=== PATIENT | male | born 1965 | race African-American/Black ===

== ENCOUNTER 2020-02-25 16:19 | Inpatient (IN) | payer OTHER ==
[2020-02-25 17:15] VITALS: BMI 33.6
--- NOTE | 2020-02-25 17:53 | HP ---
CIWA Score Nausea/Vomitin-Mild Nausea/No Vomiting Muscle Tremors: 2 Anxiety: 1-Mildly Anxious Agitation: 1-Slight > Activity Paroxysmal Sweats: 1-Minimal Palms Moist Orientation: 0-Oriented Tacttile Disturbances: 1-Very Mild Itch/Numbness Auditory Disturbances: 2-Mild Harshness/Frighten Visual Disturbances: 1-Very Mild Sensitivity Headache: 3-Moderate CIWA-Ar Total Score: 13 - Admission Criteria OASAS Guidelines: Admission for Medically Managed Detox: Requires at least one of the followin. CIWA greater than 12 2. Seizures within the past 24 hours 3. Delirium tremens within the past 24 hours 4. Hallucinations within the past 24 hours 5. Acute intervention needed for co occurring medical disorder 6. Acute intervention needed for co occurring psychiatric disorder 7. Severe withdrawal that cannot be handled at a lower level of care (continued vomiting, continued diarrhea, abnormal vital signs) requiring intravenous medication and/or fluids 8. Admission ROS [facility] Chief Complaint: alcohol detox Allergies/Adverse Reactions: Allergies Allergy/AdvReac Type Severity Reaction Status Date / Time No Known Allergies Allergy Verified 02/25/20 18:17 History of Present Illness: Patient is a 54 y/o male with a history of HTN and asthma who presents for alcohol and heroin use. Patient started drinking at age 10. Patient drinks 1/2 pint a day and reports he needs to drink every day. Patient denies ever having a seizure. Positive for blackouts and needing an eyeopener. patient has done rehab in the past but has not been able to be sober for an extended period of time. patient also uses heroin. Started using Heroin at 38. Uses 1 bundle (10 bags) a day. Overdosed once. Denies using IV. Patient last used today. Patient is on a suboxone program last took it on Monday. SGHX: none psych:bipolar, schizophrenic allx: none social: apartment, unemployed Patient meets criteria for alcohol detox with a CIWA of 13 and high risk of relapsing. Patients ISTOP shows he was prescribed suboxone recently. He used heroin today so we will start his suboxone tomorrow. *When asked if patient wants to hurt himself or others he stated " I don't know" when asked again he stated he just wanted the questions to stop and then loudly yelled he does not want to hurt himself or others. - Review of Systems Constitutional: Chills, Other (denies fever) EENT: reports: Blurred Vision, Double Vision, Other Respiratory: denies: Cough, Shortness of Breath, Wheezing Cardiac: denies: Chest Pain, Irregular Heart Rate GI: reports: Diarrhea, Nausea, Vomiting. denies: Constipated : denies: Burning Musculoskeletal: reports: Back Pain Neuro: reports: Headache. denies: Numbness, Tingling, Dizziness Endocrine: denies: Change in Weight Hematology: denies: Easy Bleeding Psychiatric: reports: Anxious, Depressed Patient History - Patient Medical History Hx Anemia: No Hx Asthma: Yes Hx Chronic Obstructive Pulmonary Disease (COPD): No Hx Cancer: No Hx Cardiac Disorders: No Hx Congestive Heart Failure: No Hx Hypertension: Yes Hx Hypercholesterolemia: No Hx Pacemaker: No HX Cerebrovascular Accident: No Hx Seizures: No Hx Dementia: No Hx Diabetes: No Hx Gastrointestinal Disorders: No Hx Liver Disease: No Hx Genitourinary Disorders: No Hx Sexually Transmitted Disorders: No Hx Renal Disease (ESRD): No Hx Thyroid Disease: No Hx Human Immunodeficiency Virus (HIV): No Hx Hepatitis C: No Hx Depression: Yes Hx Bipolar Disorder: Yes Hx Schizophrenia: Yes - Patient Surgical History Past Surgical History: No Hx Neurologic Surgery: No Hx Cataract Extraction: No Hx Cardiac Surgery: No Hx Lung Surgery: No Hx Breast Surgery: No Hx Breast Biopsy: No Hx Abdominal Surgery: No Hx Appendectomy: No Hx Cholecystectomy: No Hx Genitourinary Surgery: No Hx Section: No Hx Orthopedic Surgery: No Hx Hysterectomy: No Anesthesia Reaction: No - Smoking Cessation Smoking history: Current every day smoker Aproximately how many cigarettes per day: 60 Initiated information on smoking cessation: No - Substance & Tx. History Hx Alcohol Use: Yes Substance Use Type: Heroin - Substances abused Heroin Substance route: Inhalation Frequency: Daily Amount used: 10 bags Age of first use: 38 Date of last use: 02/25/20 Alcohol Substance route: Oral Frequency: Daily Amount used: half pint of vodka Age of first use: 8 Date of last use: 02/25/20 Admission Physical Exam [facility] - Vital Signs Vital Signs: Vital Signs - 24 hr 02/25/20 17:13 Temperature 97.2 F L Pulse Rate 69 Respiratory 19 Rate Blood Pressure 139/81 - Physical General Appearance: Yes: Obese, Other (very down attitude) HEENTM: Yes: Hearing grossly Normal, Normal ENT Inspection Respiratory: Yes: Within Normal Limits, Normal Breath Sounds, No Respiratory Distress Cardiology: Yes: Regular Rhythm, Regular Rate, S1, S2 Abdominal: Yes: Non Tender, Soft Genitourinary: Yes: Within Normal Limits Back: Yes: Within Normal Limits Musculoskeletal: Yes: full range of Motion Extremities: Yes: Non-Tender Neurological: Yes: Fully Oriented, Normal Response Integumentary: Yes: Dry, Warm - Diagnostic (1) Alcohol dependence with withdrawal Current Visit: Yes Status: Acute (2) Nicotine dependence Current Visit: Yes Status: Acute (3) Heroin addiction Current Visit: Yes Status: Acute (4) Hypertension Current Visit: Yes Status: Acute (5) Asthma Current Visit: Yes Status: Acute (6) Schizophrenia Current Visit: Yes Status: Acute Cleared for Admission S - Detox or Rehab [facility] Level of Care: Medically Managed Detox Regimen/Protocol: Librium Breathalyzer - Breathalyzer Breathalyzer: 0 Vital Signs - Vital Signs Vital signs refused: No Temperature: 97.2 F Pulse Rate: 69 Respiratory Rate: 19 Blood Pressure: 139/81 BP Location: Left Arm - Height Height: 6 ft 1 in - Weight Weight: 115.666 kg - BMI Body Mass Index (BMI): 33.6 Urine Drug Screen - Test Device Lot number: [id number] Expiration date: 09/18/19 - Control Is test valid?: Yes - Results Drug screen NEGATIVE: No Urine drug screen results: FEN-Fentanyl, MOP-Opiates Inpatient Rehab Admission - Rehab Decision to Admit Inpatient rehab admission?: No
[2020-02-25] MEDS ORDERED: BISMUTH SUBSALICYLATE 524 MG/30 ML UD PO PRN (18:04)
[2020-02-25] MEDS ORDERED: NICOTINE POLACRILEX 2 MG GUM BUC PRN (18:04)
[2020-02-25] MEDS ORDERED: MAGNESIUM HYDROX 2400MG/30ML ORAL SUSPENSION 30 ML CUP PO PRN (18:04)
[2020-02-25] MEDS ORDERED: ACETAMINOPHEN 325 MG TABLET (FP) PO PRN ×2 (18:04)
[2020-02-25] MEDS ORDERED: MAG HYDROX/AL HYDROX/SIMETH 30 ML UNIT-DOSE CUP PO PRN (18:04)
[2020-02-25] MEDS ORDERED: MAGNESIUM CITRATE 300 ML BOTTLE PO PRN (18:04)
[2020-02-25] MEDS ORDERED: MENTHOL/PHENOL 1 EACH UD MM PRN (18:04)
[2020-02-25] MEDS ORDERED: ONDANSETRON *ODT* 4 MG TABLET SL PRN (18:04)
[2020-02-25] MEDS: chlordiazePOXIDE HCL 25 MG CAPSULE PO PRN (19:42)
[2020-02-25] MEDS: PRENATAL VITAMINS W/ FOLIC ACID TABLET (FP) PO SCH (19:42)
[2020-02-25] MEDS: ALBUTEROL SO4 HFA INHALER IH SCH (20:47)
[2020-02-25] MEDS: hydrOXYzine PAMOATE 25 MG CAPSULE (FP) PO SCH (22:58)
[2020-02-25] MEDS: MELATONIN 5 MG TABLETS PO SCH (22:58)
[2020-02-25] MEDS: chlordiazePOXIDE HCL 25 MG CAPSULE PO SCH (22:58)
[2020-02-25] MEDS: THIAMINE HCL 100 MG TABLET (FP) PO SCH (22:58)
[2020-02-26] MEDS: hydrOXYzine PAMOATE 25 MG CAPSULE (FP) PO SCH ×5 (06:42→22:56)
[2020-02-26] MEDS: chlordiazePOXIDE HCL 25 MG CAPSULE PO SCH ×3 (06:42→18:58)
[2020-02-26] MEDS: ALBUTEROL SO4 HFA INHALER IH SCH ×4 (08:28→22:00)
--- NOTE | 2020-02-26 09:02 | EKG ---
Test Reason : Blood Pressure : / mmHG Vent. Rate : 070 BPM Atrial Rate : 070 BPM P-R Int : 184 ms QRS Dur : 084 ms QT Int : 374 ms P-R-T Axes : 071 000 -18 degrees QTc Int : 403 ms NORMAL SINUS RHYTHM POSSIBLE INFERIOR INFARCT , AGE UNDETERMINED ABNORMAL ECG NO PREVIOUS ECGS AVAILABLE Confirmed by MD LARRY, FAYE ([id number]) on 02/26/2020 9:02:32 AM Referred By: Confirmed By:FAYE JUAREZ MD
--- NOTE | 2020-02-26 09:03 | PN ---
Teaching Attending Note Name of Resident: Erica Bowman ATTENDING PHYSICIAN STATEMENT I saw and evaluated the patient. I reviewed the resident's note and discussed the case with the resident. I agree with the resident's findings and plan as documented. SUBJECTIVE: OBJECTIVE: ASSESSMENT AND PLAN: Agree with resident's findings and plan for detox.
--- NOTE | 2020-02-26 09:52 | PN ---
S CIWA - CIWA Score Nausea/Vomitin Muscle Tremors: 3 Anxiety: 3 Agitation: 3 Paroxysmal Sweats: No Perspiration Orientation: 0-Oriented Tacttile Disturbances: 1-Very Mild Itch/Numbness Auditory Disturbances: 0-None Visual Disturbances: 0-None Headache: 2-Mild CIWA-Ar Total Score: 14 S Progress Note (SOAP) Subjective: alert,irritable,anxious,interrupted sleep,aching pain in the body Objective: 02/26/20 11:52 Vital Signs Temperature 97.1 F L 02/26/20 08:50 Pulse Rate 70 02/26/20 08:50 Respiratory Rate 20 02/26/20 08:50 Blood Pressure 125/65 02/26/20 08:50 O2 Sat by Pulse Oximetry (%) 100 02/26/20 08:50 Laboratory Last Values WBC 4.2 K/mm3 (4.0-10.0) 02/26/20 07:45 RBC 3.92 M/mm3 (4.00-5.60) L 02/26/20 07:45 Hgb 12.2 GM/dL (11.7-16.9) 02/26/20 07:45 Hct 35.9 % (35.4-49) 02/26/20 07:45 MCV 91.5 fl (80-96) 02/26/20 07:45 MCH 31.2 pg (25.7-33.7) 02/26/20 07:45 MCHC 34.1 g/dl (32.0-35.9) 02/26/20 07:45 RDW 15.5 % (11.9-15.9) 02/26/20 07:45 Plt Count 209 K/MM3 (134-434) 02/26/20 07:45 MPV 9.7 fl (7.5-11.1) 02/26/20 07:45 Sodium 142 mmol/L (136-145) 02/26/20 07:45 Potassium 4.0 mmol/L (3.5-5.1) 02/26/20 07:45 Chloride 108 mmol/L (98-107) H 02/26/20 07:45 Carbon Dioxide 28 mmol/L (21-32) 02/26/20 07:45 Anion Gap 6 MMOL/L (8-16) L 02/26/20 07:45 BUN 17.1 mg/dL (7-18) 02/26/20 07:45 Creatinine 0.9 mg/dL (0.55-1.3) 02/26/20 07:45 Est GFR (CKD-EPI)AfAm 110.27 02/26/20 07:45 Est GFR (CKD-EPI)NonAf 95.14 02/26/20 07:45 Random Glucose 137 mg/dL (74-106) H 02/26/20 07:45 Calcium 8.4 mg/dL (8.5-10.1) L 02/26/20 07:45 Total Bilirubin 0.3 mg/dL (0.2-1) 02/26/20 07:45 AST 24 U/L (15-37) 02/26/20 07:45 ALT 32 U/L (13-61) 02/26/20 07:45 Alkaline Phosphatase 57 U/L (45-117) 02/26/20 07:45 Total Protein 6.4 g/dl (6.4-8.2) 02/26/20 07:45 Albumin 2.9 g/dl (3.4-5.0) L 02/26/20 07:45 Syphilis Serology Non-reactive (NONREACTIVE) 02/26/20 07:45 Assessment: 02/26/20 11:53 withdrawal symptom Plan: continue detox librium regimen,i stop showed patient is on suboxone 8mgs/2mgs f ilm tid filled on 01/29/20 for 90 film for 30 days, requested 8mg/2mg sl 2 films at 0600 and 1 film at 1400 from tomorrow
[2020-02-26] MEDS ORDERED: BUPRENORPHINE/NALOXONE 8 MG/2 MG FILM PACKET SL SCH (10:00)
[2020-02-26] MEDS: NICOTINE 21 MG/24 HOURS TOPICAL PATCH TD SCH (10:18)
[2020-02-26] MEDS: PRENATAL VITAMINS W/ FOLIC ACID TABLET (FP) PO SCH (10:18)
[2020-02-26 10:27] LABS: HEMATOCRIT 35.9 % (35.4-49); HEMOGLOBIN 12.2 GM/dL (11.7-16.9); MCH 31.2 pg (25.7-33.7); MCHC 34.1 g/dl (32.0-35.9); MEAN CELL VOLUME 91.5 fl (80-96); MEAN PLT VOLUME 9.7 fl (7.5-11.1); PLATELET COUNT 209 K/MM3 (134-434); RBC 3.92 M/mm3 (4.00-5.60); RDW 15.5 % (11.9-15.9); WHITE BLOOD COUNT 4.2 K/mm3 (4.0-10.0)
[2020-02-26 10:48] LABS: ALBUMIN 2.9 g/dl (3.4-5.0); BILIRUBIN,TOTAL 0.3 mg/dL (0.2-1); BLOOD UREA NITROGEN 17.1 mg/dL (7-18); CALCIUM 8.4 mg/dL (8.5-10.1); CREATININE 0.9 mg/dL (0.55-1.3); TOT PROT 6.4 g/dl (6.4-8.2)
[2020-02-26] MEDS ORDERED: BUPRENORPHINE/NALOXONE 8 MG/2 MG FILM PACKET SL ONE (11:45)
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
[2020-02-26] MEDS: BUPRENORPHINE/NALOXONE 8 MG/2 MG FILM PACKET SL SCH (15:02)
[2020-02-26] MEDS: IBUPROFEN 400 MG TABLET (FP) PO PRN (19:44)
[2020-02-26] MEDS ORDERED: SUVOREXANT 10 MG TABLET PO PRN (22:00)
[2020-02-26] MEDS: THIAMINE HCL 100 MG TABLET (FP) PO SCH (22:56)
[2020-02-26] MEDS: MELATONIN 5 MG TABLETS PO SCH (22:56)
[2020-02-27] MEDS: chlordiazePOXIDE HCL 25 MG CAPSULE PO SCH ×5 (00:09→22:16)
[2020-02-27] MEDS: MIRTAZAPINE 15 MG TABLET (FP) PO SCH ×2 (00:09→22:16)
[2020-02-27] MEDS: HALOPERIDOL 5 MG TABLET PO SCH ×2 (00:09→22:16)
[2020-02-27] MEDS: chlordiazePOXIDE HCL 25 MG CAPSULE PO PRN ×2 (02:47→19:09)
[2020-02-27] MEDS: hydrOXYzine PAMOATE 25 MG CAPSULE (FP) PO SCH ×2 (06:34→11:06)
[2020-02-27] MEDS: BUPRENORPHINE/NALOXONE 8 MG/2 MG FILM PACKET SL SCH ×2 (06:34→14:03)
[2020-02-27] MEDS: ALBUTEROL SO4 HFA INHALER IH SCH ×4 (07:11→22:17)
[2020-02-27] MEDS ORDERED: hydrOXYzine PAMOATE 25 MG CAPSULE (FP) PO PRN (10:20)
[2020-02-27] MEDS ORDERED: cloNIDine HCL 0.1 MG TABLET PO ONE (10:21)
--- NOTE | 2020-02-27 10:24 | PN ---
S CIWA - CIWA Score Nausea/Vomitin-Mild Nausea/No Vomiting Muscle Tremors: 3 Anxiety: 2 Agitation: 3 Paroxysmal Sweats: 3 Orientation: 0-Oriented Tacttile Disturbances: 0-None Auditory Disturbances: 0-None Visual Disturbances: 0-None Headache: 0-None Present CIWA-Ar Total Score: 12 S Progress Note (SOAP) Subjective: sweats body aches restless interrupted sleep Objective: 02/27/20 10:22 Vital Signs Temperature 97.3 F L 02/27/20 08:15 Pulse Rate 64 02/27/20 08:15 Respiratory Rate 18 02/27/20 08:15 Blood Pressure 185/96 H 02/27/20 08:15 O2 Sat by Pulse Oximetry (%) 98 02/27/20 05:11 Laboratory Tests 02/25/20 02/26/20 02/26/20 18:00 07:45 07:45 WBC 4.2 RBC 3.92 L Hgb 12.2 Hct 35.9 MCV 91.5 MCH 31.2 MCHC 34.1 RDW 15.5 Plt Count 209 MPV 9.7 Sodium Potassium Chloride Carbon Dioxide Anion Gap BUN Creatinine Est GFR (CKD-EPI)AfAm Est GFR (CKD-EPI)NonAf Random Glucose Calcium Total Bilirubin AST ALT Alkaline Phosphatase Total Protein Albumin Syphilis Serology Non-reactive COVID-19 (KELLE) Not detected 02/26/20 07:45 WBC RBC Hgb Hct MCV MCH MCHC RDW Plt Count MPV Sodium 142 Potassium 4.0 Chloride 108 H Carbon Dioxide 28 Anion Gap 6 L BUN 17.1 Creatinine 0.9 Est GFR (CKD-EPI)AfAm 110.27 Est GFR (CKD-EPI)NonAf 95.14 Random Glucose 137 H Calcium 8.4 L Total Bilirubin 0.3 AST 24 ALT 32 Alkaline Phosphatase 57 Total Protein 6.4 Albumin 2.9 L Syphilis Serology COVID-19 (KELLE) labs noted HTN noted 185/96; repeat BP 142/76 HR 78 clonidine 0.1mg x one aaox3 ambulating no acute distress Assessment: 02/27/20 10:24 withdrawals Plan: continue detox clonidine 0.1mg x one
[2020-02-27] MEDS: PRENATAL VITAMINS W/ FOLIC ACID TABLET (FP) PO SCH (10:53)
[2020-02-27] MEDS: NICOTINE 21 MG/24 HOURS TOPICAL PATCH TD SCH (10:53)
[2020-02-27] MEDS: IBUPROFEN 400 MG TABLET (FP) PO PRN (14:33)
[2020-02-27] MEDS ORDERED: MASKS NR ONE (16:55)
[2020-02-27] MEDS: THIAMINE HCL 100 MG TABLET (FP) PO SCH (22:16)
[2020-02-27] MEDS: MELATONIN 5 MG TABLETS PO SCH (22:17)
[2020-02-28] MEDS ORDERED: chlordiazePOXIDE HCL 10 MG CAPSULE PO PRN
[2020-02-28] MEDS: chlordiazePOXIDE HCL 10 MG CAPSULE PO SCH ×4 (05:23→22:16)
[2020-02-28] MEDS: BUPRENORPHINE/NALOXONE 8 MG/2 MG FILM PACKET SL SCH ×2 (05:24→14:17)
[2020-02-28] MEDS: ALBUTEROL SO4 HFA INHALER IH SCH ×4 (07:02→22:15)
--- NOTE | 2020-02-28 10:05 | PN ---
S CIWA - CIWA Score Nausea/Vomitin-Mild Nausea/No Vomiting Muscle Tremors: 2 Anxiety: 2 Agitation: 2 Paroxysmal Sweats: No Perspiration Orientation: 0-Oriented Tacttile Disturbances: 1-Very Mild Itch/Numbness Auditory Disturbances: 0-None Visual Disturbances: 0-None Headache: 1-Very Mild CIWA-Ar Total Score: 9 BHS Progress Note (SOAP) Subjective: alert,irritable,anxious,interrupted sleep,aching pain Objective: 02/28/20 16:08 Vital Signs Temperature 97.6 F 02/28/20 13:10 Pulse Rate 74 02/28/20 13:10 Respiratory Rate 17 02/28/20 13:10 Blood Pressure 150/87 02/28/20 13:10 O2 Sat by Pulse Oximetry (%) 99 02/28/20 13:10 Assessment: 02/28/20 16:09 withdrawal symptom Plan: continue detox librium regimen,continue suboxone ,close monitoring
[2020-02-28] MEDS: PRENATAL VITAMINS W/ FOLIC ACID TABLET (FP) PO SCH (10:51)
[2020-02-28] MEDS: NICOTINE 21 MG/24 HOURS TOPICAL PATCH TD SCH (10:51)
[2020-02-28] MEDS: IBUPROFEN 400 MG TABLET (FP) PO PRN (13:10)
[2020-02-28] MEDS: METHOCARBAMOL 500 MG TABLET PO PRN (13:10)
[2020-02-28] MEDS: MELATONIN 5 MG TABLETS PO SCH (22:16)
[2020-02-28] MEDS: MIRTAZAPINE 15 MG TABLET (FP) PO SCH (22:16)
[2020-02-28] MEDS: HALOPERIDOL 5 MG TABLET PO SCH (22:16)
[2020-02-28] MEDS: THIAMINE HCL 100 MG TABLET (FP) PO SCH (22:16)
[2020-02-29] MEDS: IBUPROFEN 400 MG TABLET (FP) PO PRN ×2 (00:48→13:50)
[2020-02-29] MEDS: BUPRENORPHINE/NALOXONE 8 MG/2 MG FILM PACKET SL SCH ×2 (06:15→13:50)
[2020-02-29] MEDS: chlordiazePOXIDE HCL 10 MG CAPSULE PO SCH ×2 (06:18→17:29)
[2020-02-29] MEDS: ALBUTEROL SO4 HFA INHALER IH SCH ×4 (07:12→22:28)
[2020-02-29] MEDS: NICOTINE 21 MG/24 HOURS TOPICAL PATCH TD SCH (10:26)
[2020-02-29] MEDS: PRENATAL VITAMINS W/ FOLIC ACID TABLET (FP) PO SCH (10:26)
[2020-02-29] MEDS: METHOCARBAMOL 500 MG TABLET PO PRN ×2 (13:50→22:30)
--- NOTE | 2020-02-29 13:58 | PN ---
[facility] CIWA - CIWA Score Nausea/Vomitin-No Nausea/No Vomiting Muscle Tremors: 1-None Visible, but [place] Anxiety: 2 Agitation: 1-Slight > Activity Paroxysmal Sweats: 1-Minimal Palms Moist Orientation: 0-Oriented Tacttile Disturbances: 0-None Auditory Disturbances: 0-None Visual Disturbances: 0-None Headache: 0-None Present CIWA-Ar Total Score: 5 BHS Progress Note (SOAP) Subjective: Complaints of mild anxiety, sweats and agitation. Objective: 02/29/20 13:56 Vital Signs 02/29/20 02/29/20 12:25 Temperature 98.0 F 98.4 F Pulse Rate 71 86 Respiratory 18 18 Rate Blood Pressure 147/91 145/99 O2 Sat by Pulse 96 98 Oximetry (%) Laboratory Last Values WBC 4.2 K/mm3 (4.0-10.0) 02/26/20 07:45 RBC 3.92 M/mm3 (4.00-5.60) L 02/26/20 07:45 Hgb 12.2 GM/dL (11.7-16.9) 02/26/20 07:45 Hct 35.9 % (35.4-49) 02/26/20 07:45 MCV 91.5 fl (80-96) 02/26/20 07:45 MCH 31.2 pg (25.7-33.7) 02/26/20 07:45 MCHC 34.1 g/dl (32.0-35.9) 02/26/20 07:45 RDW 15.5 % (11.9-15.9) 02/26/20 07:45 Plt Count 209 K/MM3 (134-434) 02/26/20 07:45 MPV 9.7 fl (7.5-11.1) 02/26/20 07:45 Sodium 142 mmol/L (136-145) 02/26/20 07:45 Potassium 4.0 mmol/L (3.5-5.1) 02/26/20 07:45 Chloride 108 mmol/L (98-107) H 02/26/20 07:45 Carbon Dioxide 28 mmol/L (21-32) 02/26/20 07:45 Anion Gap 6 MMOL/L (8-16) L 02/26/20 07:45 BUN 17.1 mg/dL (7-18) 02/26/20 07:45 Creatinine 0.9 mg/dL (0.55-1.3) 02/26/20 07:45 Est GFR (CKD-EPI)AfAm 110.27 02/26/20 07:45 Est GFR (CKD-EPI)NonAf 95.14 02/26/20 07:45 Random Glucose 137 mg/dL (74-106) H 02/26/20 07:45 Calcium 8.4 mg/dL (8.5-10.1) L 02/26/20 07:45 Total Bilirubin 0.3 mg/dL (0.2-1) 02/26/20 07:45 AST 24 U/L (15-37) 02/26/20 07:45 ALT 32 U/L (13-61) 02/26/20 07:45 Alkaline Phosphatase 57 U/L (45-117) 02/26/20 07:45 Total Protein 6.4 g/dl (6.4-8.2) 02/26/20 07:45 Albumin 2.9 g/dl (3.4-5.0) L 02/26/20 07:45 Syphilis Serology Non-reactive (NONREACTIVE) 02/26/20 07:45 COVID-19 (KELLE) Not detected (Not Detected) 02/25/20 18:00 Labs noted. Assessment: 02/29/20 13:57 Alert and oriented x 3, in no acute respiratory distress. Full ROM, ambulating in unit without assistance. Skin warm to touch without any lesions. Mild withdrawal symptoms. Plan: Continue detox protocol. D/C in AM.
--- NOTE | 2020-02-29 17:39 | PN ---
S Progress Note Note: Patient states not receiving B/P meds and his feet are swollen. Wants to see psych for seroquel. No thoughts of harming self. Vital Signs - 24 hr 02/28/20 02/29/20 02/29/20 20:19 05:08 09:20 Temperature 97.8 F 97.7 F 98.0 F Pulse Rate 86 71 71 Respiratory 18 20 18 Rate Blood Pressure 146/86 129/69 147/91 O2 Sat by Pulse 98 98 96 Oximetry (%) 02/29/20 12:25 Temperature 98.4 F Pulse Rate 86 Respiratory 18 Rate Blood Pressure 145/99 O2 Sat by Pulse 98 Oximetry (%) Plan: Medication list reviewed and started on Cardura. Psych consult submitted.
[2020-02-29] MEDS: DOXAZOSIN MESYLATE 2 MG TABLET PO SCH (20:12)
[2020-02-29] MEDS: MELATONIN 5 MG TABLETS PO SCH (22:28)
[2020-02-29] MEDS: HALOPERIDOL 5 MG TABLET PO SCH (22:28)
[2020-02-29] MEDS: MIRTAZAPINE 15 MG TABLET (FP) PO SCH (22:28)
[2020-02-29] MEDS: THIAMINE HCL 100 MG TABLET (FP) PO SCH (22:29)
[2020-03-01] MEDS ORDERED: chlordiazePOXIDE HCL 10 MG CAPSULE PO ONE (05:00)
[2020-03-01] MEDS: BUPRENORPHINE/NALOXONE 8 MG/2 MG FILM PACKET SL SCH ×2 (06:06→14:07)
[2020-03-01] MEDS: METHOCARBAMOL 500 MG TABLET PO PRN (06:08)
[2020-03-01 10:26] VITALS: TEMP 97.8
[2020-03-01] MEDS: NICOTINE 21 MG/24 HOURS TOPICAL PATCH TD SCH (10:39)
[2020-03-01] MEDS: PRENATAL VITAMINS W/ FOLIC ACID TABLET (FP) PO SCH (10:39)
[2020-03-01] MEDS: DOXAZOSIN MESYLATE 2 MG TABLET PO SCH (10:39)
--- NOTE | 2020-03-01 12:22 | DS ---
[facility] Detox Discharge Summary Admission Date: 02/25/20 Discharge Date: 03/01/20 - History Present History: Alcohol Dependence, Opioid Dependence, MMTP Additional Comments: Pt completed detox successfully and accepted admission to [facility] inpatient rehab. Pt instructed to follow up with his PCP within 1 week post discharge from rehab. Pertinent Past History: Asthma HTN Nicotine dependence - Physical Exam Results Vital Signs: Vital Signs Temperature 97.8 F 03/01/20 09:25 Pulse Rate 74 03/01/20 09:25 Respiratory Rate 20 03/01/20 09:25 Blood Pressure 156/77 03/01/20 09:25 O2 Sat by Pulse Oximetry (%) 97 03/01/20 09:25 Pertinent Admission Physical Exam Findings: Withdrawal sxs Laboratory Tests 02/25/20 02/26/20 02/26/20 18:00 07:45 07:45 WBC 4.2 RBC 3.92 L Hgb 12.2 Hct 35.9 MCV 91.5 MCH 31.2 MCHC 34.1 RDW 15.5 Plt Count 209 MPV 9.7 Sodium Potassium Chloride Carbon Dioxide Anion Gap BUN Creatinine Est GFR (CKD-EPI)AfAm Est GFR (CKD-EPI)NonAf Random Glucose Calcium Total Bilirubin AST ALT Alkaline Phosphatase Total Protein Albumin Syphilis Serology Non-reactive COVID-19 (KELLE) Not detected 02/26/20 07:45 WBC RBC Hgb Hct MCV MCH MCHC RDW Plt Count MPV Sodium 142 Potassium 4.0 Chloride 108 H Carbon Dioxide 28 Anion Gap 6 L BUN 17.1 Creatinine 0.9 Est GFR (CKD-EPI)AfAm 110.27 Est GFR (CKD-EPI)NonAf 95.14 Random Glucose 137 H Calcium 8.4 L Total Bilirubin 0.3 AST 24 ALT 32 Alkaline Phosphatase 57 Total Protein 6.4 Albumin 2.9 L Syphilis Serology COVID-19 (KELLE) Labs reviewed: serum glucose 137 (high), denies DM: repeat fasting glucose, send A1c; albumin 2.9 (low): encourage diet - Treatment Hospital Course: Detox Protocol Followed, Detoxed Safely, Responded well, Discharged Condition Good, Rehab Referral Accepted - Medication Discharge Medications: Ambulatory Orders Albuterol Sulfate [Albuterol Sulfate Hfa] 2 puff IH QID 02/25/20 Buprenorphine HCl/Naloxone HCl [Suboxone 8 mg-2 mg Sl Tablets] 1 film PO TID 02/25/20 Bupropion HCl [Wellbutrin Sr] 150 mg PO DAILY 02/25/20 Doxazosin Mesylate [Cardura -] 2 mg PO DAILY 02/25/20 Haloperidol [Haldol -] 5 mg PO HS 02/25/20 Mirtazapine [Remeron -] 15 mg PO HS 02/25/20 Zolpidem Tartrate [Ambien] 10 mg PO HS 02/25/20 - Diagnosis (1) Hyperglycemia Current Visit: Yes Status: Acute (2) Hypoalbuminemia Current Visit: Yes Status: Acute (3) Alcohol dependence with withdrawal Current Visit: Yes Status: Acute (4) Uncomplicated opioid dependence Current Visit: Yes Status: Acute (5) Asthma Current Visit: Yes Status: Chronic (6) Hypertension Current Visit: Yes Status: Chronic (7) Nicotine dependence Current Visit: Yes Status: Chronic (8) Schizophrenia Current Visit: Yes Status: Chronic - AMA Did Patient Leave Against Medical Advice: No (Patient accepted admission to [facility] inpatient rehab)
[2020-03-01] MEDS: IBUPROFEN 400 MG TABLET (FP) PO PRN (14:05)
[2020-03-01 14:08] VITALS: BP 157/70; PULSE 91
== END 2020-03-01 14:35 | disposition other institution (70) | DRG 773 ==
LOC: YASAS 16:19 → Y6N 18:36
PROVIDERS: ADMIT Allergy & Immunology; ATTEND Allergy & Immunology
PROC: HZ2ZZZZ Detoxification Services for Substance Abuse Treatment (ICD-10-PCS; principal; 2020-02-25)
DX: F10.230 Alcohol dependence with withdrawal, uncomplicated (principal); F11.20 Opioid dependence, uncomplicated; F17.210 Nicotine dependence, cigarettes, uncomplicated; F19.282 Other psychoactive substance dependence with psychoactive substance-induced sleep disorder; F19.24 Other psychoactive substance dependence with psychoactive substance-induced mood disorder; F31.9 Bipolar disorder, unspecified; F20.9 Schizophrenia, unspecified; E88.09 Other disorders of plasma-protein metabolism, not elsewhere classified; I10 Essential (primary) hypertension; J45.909 Unspecified asthma, uncomplicated; R73.9 Hyperglycemia, unspecified; Z62.810 Personal history of physical and sexual abuse in childhood; Z56.0 Unemployment, unspecified
CPT/HCPCS: 36415; 80053; 85027; 86780; 93005; 93010; J0735; U0003

== ENCOUNTER 2020-03-01 14:35 | Inpatient (IN) | payer OTHER ==
--- NOTE | 2020-03-01 15:08 | HP ---
[facility] Re[facility] Assess/Revision - Admission History Admitted to Rehab from: [facility] Date of Admission to Rehab: 03/01/20 - Vital signs Vital Signs: Vital Signs Period Temp Pulse Resp BP Sys/Boudreaux Pulse Ox Last 24 Hr 93 18 152/95 - Findings Detox History & Physical reviewed: Yes Concur with findings: Yes Inpatient Rehab Admission - Rehab Decision to Admit Inpatient rehab admission?: Yes - Initial Determination Are CD services needed?: No Free of communicable disease: Yes Not in need of hospitalization: No - Rehab Admission Criteria Previous failed treatment: Yes Poor recovery environment: Yes Comorbidities: Yes Lacks judgement: Yes Patient is meeting Inpatient Rehab admission criteria:: Yes
[2020-03-01] MEDS ORDERED: P-EPHED 60MG/TRIPROLIDI 2.5MG TABLET PO PRN (15:09)
[2020-03-01] MEDS ORDERED: MENTHOL/PHENOL 1 EACH UD MM PRN (15:09)
[2020-03-01] MEDS ORDERED: MAGNESIUM CITRATE 300 ML BOTTLE PO PRN (15:09)
[2020-03-01] MEDS ORDERED: guaiFENesin 200 MG/10 ML 10 ML UNIT-DOSE CUPS PO PRN (15:09)
[2020-03-01] MEDS ORDERED: ACETAMINOPHEN 325 MG TABLET (FP) PO PRN (15:09)
[2020-03-01] MEDS ORDERED: LOPERAMIDE HCL 2 MG CAPSULE PO PRN (15:09)
[2020-03-01] MEDS ORDERED: MAGNESIUM HYDROX 2400MG/30ML ORAL SUSPENSION 30 ML CUP PO PRN (15:09)
--- NOTE | 2020-03-01 16:11 | PN ---
[facility] Progress Note Note: Patient is referred for a witnessed fall. As per report, patient was coming out of the bathroom when he slipped and fell on his buttocks without hitting his head. He is examined in his room, in no apparent distress. He denies new pain, he has chronic low back pain. PE Vital Signs Temperature 98.5 F 03/01/20 16:02 Pulse Rate 89 03/01/20 16:02 Respiratory Rate 18 03/01/20 16:02 Blood Pressure 151/85 03/01/20 16:02 O2 Sat by Pulse Oximetry (%) HEENT: Unremarkable Chest:Lungs clear Extremities: No swelling, no deformities, MCCOY x 4 at baseline Neuro: A&Ox3, no focal deficits A/P Witnessed fall-Fall protocol # 2 activated Cane for ambulation Monitoring ongoing
[2020-03-01] MEDS: THIAMINE HCL 100 MG TABLET (FP) PO SCH (21:07)
[2020-03-01] MEDS: MELATONIN 5 MG TABLETS PO SCH (21:07)
[2020-03-01] MEDS: HALOPERIDOL 5 MG TABLET PO SCH (21:07)
[2020-03-01] MEDS: SUVOREXANT 10 MG TABLET PO PRN (21:08)
[2020-03-01] MEDS: MIRTAZAPINE 15 MG TABLET (FP) PO SCH (21:08)
[2020-03-01] MEDS: IBUPROFEN 400 MG TABLET (FP) PO PRN (21:09)
[2020-03-02] MEDS: BUPRENORPHINE/NALOXONE 8 MG/2 MG FILM PACKET SL SCH ×2 (06:24→14:55)
[2020-03-02] MEDS ORDERED: PT OWN MED DRAWER 7, Y5N ONE (08:52)
[2020-03-02] MEDS: PRENATAL VITAMINS W/ FOLIC ACID TABLET (FP) PO SCH (10:50)
[2020-03-02] MEDS: NICOTINE 21 MG/24 HOURS TOPICAL PATCH TD SCH (10:50)
[2020-03-02] MEDS: DOXAZOSIN MESYLATE 2 MG TABLET PO SCH (10:50)
[2020-03-02] MEDS: ALBUTEROL SO4 HFA INHALER IH PRN (11:10)
[2020-03-02] MEDS: HALOPERIDOL 5 MG TABLET PO SCH (21:49)
[2020-03-02] MEDS: MELATONIN 5 MG TABLETS PO SCH (21:49)
[2020-03-02] MEDS: THIAMINE HCL 100 MG TABLET (FP) PO SCH (21:49)
[2020-03-02] MEDS: MIRTAZAPINE 15 MG TABLET (FP) PO SCH (21:49)
[2020-03-02] MEDS: SUVOREXANT 10 MG TABLET PO PRN (21:50)
[2020-03-03] MEDS: BUPRENORPHINE/NALOXONE 8 MG/2 MG FILM PACKET SL SCH ×2 (06:12→14:31)
[2020-03-03] MEDS: DOXAZOSIN MESYLATE 2 MG TABLET PO SCH (10:24)
[2020-03-03] MEDS: ALBUTEROL SO4 HFA INHALER IH PRN (10:59)
[2020-03-03] MEDS: NICOTINE 21 MG/24 HOURS TOPICAL PATCH TD SCH (10:59)
[2020-03-03] MEDS: PRENATAL VITAMINS W/ FOLIC ACID TABLET (FP) PO SCH (10:59)
[2020-03-03] MEDS: METHOCARBAMOL 500 MG TABLET PO SCH ×3 (14:29→21:05)
[2020-03-03] MEDS ORDERED: PT OWN MED DRAWER 7, Y5N ONE (18:36)
[2020-03-03] MEDS: MIRTAZAPINE 15 MG TABLET (FP) PO SCH (21:05)
[2020-03-03] MEDS: THIAMINE HCL 100 MG TABLET (FP) PO SCH (21:05)
[2020-03-03] MEDS: MELATONIN 5 MG TABLETS PO SCH (21:05)
[2020-03-03] MEDS: SUVOREXANT 10 MG TABLET PO PRN (21:05)
[2020-03-03] MEDS: HALOPERIDOL 5 MG TABLET PO SCH (21:05)
[2020-03-04] MEDS: BUPRENORPHINE/NALOXONE 8 MG/2 MG FILM PACKET SL SCH ×2 (05:51→14:34)
[2020-03-04] MEDS: IBUPROFEN 400 MG TABLET (FP) PO PRN ×2 (05:52→17:45)
[2020-03-04] MEDS: DOXAZOSIN MESYLATE 2 MG TABLET PO SCH (09:16)
[2020-03-04] MEDS: PRENATAL VITAMINS W/ FOLIC ACID TABLET (FP) PO SCH (09:16)
[2020-03-04] MEDS: METHOCARBAMOL 500 MG TABLET PO SCH ×4 (09:16→21:47)
[2020-03-04] MEDS: ALBUTEROL SO4 HFA INHALER IH PRN (09:17)
[2020-03-04] MEDS: NICOTINE 21 MG/24 HOURS TOPICAL PATCH TD SCH (09:17)
--- NOTE | 2020-03-04 09:40 | PN ---
S Progress Note Note: Patient had a fall on and is now c/o pain. general: no apparent distress MSK: full weight bearing, steady gait Neuro: Muscle strength equal LBP Will order x-ray, tylenol increased
[2020-03-04] MEDS: HALOPERIDOL 5 MG TABLET PO SCH (21:47)
[2020-03-04] MEDS: THIAMINE HCL 100 MG TABLET (FP) PO SCH (21:47)
[2020-03-04] MEDS: MELATONIN 5 MG TABLETS PO SCH (21:47)
[2020-03-04] MEDS: MIRTAZAPINE 15 MG TABLET (FP) PO SCH (21:47)
[2020-03-05] MEDS: IBUPROFEN 400 MG TABLET (FP) PO PRN ×2 (03:14→10:24)
[2020-03-05] MEDS: BUPRENORPHINE/NALOXONE 8 MG/2 MG FILM PACKET SL SCH ×2 (06:22→14:32)
--- NOTE | 2020-03-05 10:12 | PN ---
[facility] Progress Note Note: Sacrum x-ray done. no fracture or injury note.
[2020-03-05] MEDS: METHOCARBAMOL 500 MG TABLET PO SCH ×4 (10:24→21:04)
[2020-03-05] MEDS: PRENATAL VITAMINS W/ FOLIC ACID TABLET (FP) PO SCH (10:24)
[2020-03-05] MEDS: ALBUTEROL SO4 HFA INHALER IH PRN (10:25)
[2020-03-05] MEDS: NICOTINE 21 MG/24 HOURS TOPICAL PATCH TD SCH (10:25)
[2020-03-05] MEDS: DOXAZOSIN MESYLATE 2 MG TABLET PO SCH (10:25)
--- NOTE | 2020-03-05 13:27 | PN ---
[facility] Progress Note (SOAP) Subjective: Patient c/o lower back pain, X-ray indicates no injury. Also reports ankle swelling. States that this has been happening for about 2 weeks, and has happened in the past. Reports that his father had ankle swelling, PMHx of BPH and HTN, on cardura. Objective: General: no apparent distress Resp: unlabored MSK: full weight bearing, gait steady with cane BACK: spine with normal curvature, tenderness in sacral area. Extremities: 2+ pitting edema bilaterally, skin on legs shiny and tight. Neuro: no cognitive deficits, CN 2-12 intact, Muscle strength equal 03/05/20 13:2 Vital Signs Period Temp Pulse Resp BP Sys/Boudreaux Pulse Ox Last 24 Hr 97.7 F-98.1 F 72-76 16-18 138-152/72-78 96-97 03/05/20 13:25 03/05/20 13:27 03/05/20 13:27 Assessment: LE edema LBP 03/05/20 13:25 03/05/20 13:28 Plan: EDEMA: Cardura increased to 4mg daily Irineo stockings ordered Advised patient to elevate legs when sitting and resting Increase walking LBP: Motrin increased to 600mg every 4 hours Lidoderm patch ordered [place] at night ordered.
[2020-03-05] MEDS ORDERED: DOXAZOSIN MESYLATE 4 MG TABLET PO SCH (14:00)
[2020-03-05] MEDS: LIDOCAINE 5% TOPICAL PATCH TP SCH (14:30)
[2020-03-05] MEDS ORDERED: DOXAZOSIN MESYLATE 1 MG TABLET PO ONE (14:30)
[2020-03-05] MEDS: MELATONIN 5 MG TABLETS PO SCH (21:04)
[2020-03-05] MEDS: MIRTAZAPINE 15 MG TABLET (FP) PO SCH (21:04)
[2020-03-05] MEDS: THIAMINE HCL 100 MG TABLET (FP) PO SCH (21:04)
[2020-03-05] MEDS: LIDOCAINE PATCH REMOVAL MC SCH (21:04)
[2020-03-05] MEDS: HALOPERIDOL 5 MG TABLET PO SCH (21:05)
[2020-03-05] MEDS: METHYL SALICYLATE/MENTHOL OINT 30 GM TUBE TP SCH (21:05)
[2020-03-05] MEDS: SUVOREXANT 10 MG TABLET PO PRN (21:07)
[2020-03-06] MEDS: BUPRENORPHINE/NALOXONE 8 MG/2 MG FILM PACKET SL SCH ×2 (06:37→15:48)
[2020-03-06] MEDS: LIDOCAINE 5% TOPICAL PATCH TP SCH (10:05)
[2020-03-06] MEDS: PRENATAL VITAMINS W/ FOLIC ACID TABLET (FP) PO SCH (10:05)
[2020-03-06] MEDS: METHOCARBAMOL 500 MG TABLET PO SCH ×4 (10:05→21:11)
[2020-03-06] MEDS: DOXAZOSIN MESYLATE 4 MG TABLET PO SCH (10:06)
[2020-03-06] MEDS: NICOTINE 21 MG/24 HOURS TOPICAL PATCH TD SCH (10:06)
[2020-03-06] MEDS: ALBUTEROL SO4 HFA INHALER IH PRN ×2 (10:07→21:09)
[2020-03-06] MEDS ORDERED: PT OWN MED DRAWER 7, Y5N ONE (19:28)
[2020-03-06] MEDS: LIDOCAINE PATCH REMOVAL MC SCH (21:10)
[2020-03-06] MEDS: METHYL SALICYLATE/MENTHOL OINT 30 GM TUBE TP SCH (21:10)
[2020-03-06] MEDS: HALOPERIDOL 5 MG TABLET PO SCH (21:10)
[2020-03-06] MEDS: MELATONIN 5 MG TABLETS PO SCH (21:11)
[2020-03-06] MEDS: THIAMINE HCL 100 MG TABLET (FP) PO SCH (21:11)
[2020-03-06] MEDS: MIRTAZAPINE 15 MG TABLET (FP) PO SCH (21:11)
[2020-03-06] MEDS: SUVOREXANT 10 MG TABLET PO PRN (21:11)
[2020-03-06] MEDS: MAG HYDROX/AL HYDROX/SIMETH 30 ML UNIT-DOSE CUP PO PRN (21:12)
[2020-03-07] MEDS: BUPRENORPHINE/NALOXONE 8 MG/2 MG FILM PACKET SL SCH ×2 (06:38→15:18)
[2020-03-07] MEDS: IBUPROFEN 600 MG TABLET (FP) PO PRN (06:54)
[2020-03-07] MEDS: PRENATAL VITAMINS W/ FOLIC ACID TABLET (FP) PO SCH (09:47)
[2020-03-07] MEDS: LIDOCAINE 5% TOPICAL PATCH TP SCH (09:47)
[2020-03-07] MEDS: METHOCARBAMOL 500 MG TABLET PO SCH ×5 (09:47→22:13)
[2020-03-07] MEDS: NICOTINE 21 MG/24 HOURS TOPICAL PATCH TD SCH (09:47)
[2020-03-07] MEDS: DOXAZOSIN MESYLATE 4 MG TABLET PO SCH (09:48)
[2020-03-07] MEDS: MAG HYDROX/AL HYDROX/SIMETH 30 ML UNIT-DOSE CUP PO PRN (13:00)
[2020-03-07] MEDS ORDERED: PT OWN MED DRAWER 7, Y5N ONE (20:21)
[2020-03-07] MEDS: THIAMINE HCL 100 MG TABLET (FP) PO SCH (22:13)
[2020-03-07] MEDS: METHYL SALICYLATE/MENTHOL OINT 30 GM TUBE TP SCH (22:13)
[2020-03-07] MEDS: HALOPERIDOL 5 MG TABLET PO SCH (22:13)
[2020-03-07] MEDS: MELATONIN 5 MG TABLETS PO SCH (22:14)
[2020-03-07] MEDS: LIDOCAINE PATCH REMOVAL MC SCH (22:14)
[2020-03-07] MEDS: MIRTAZAPINE 15 MG TABLET (FP) PO SCH (22:14)
[2020-03-08] MEDS: BUPRENORPHINE/NALOXONE 8 MG/2 MG FILM PACKET SL SCH ×2 (06:08→13:02)
[2020-03-08] MEDS ORDERED: PT OWN MED DRAWER 7, Y5N ONE ×2 (08:51→20:56)
[2020-03-08] MEDS: DOXAZOSIN MESYLATE 4 MG TABLET PO SCH (10:36)
[2020-03-08] MEDS: METHOCARBAMOL 500 MG TABLET PO SCH ×4 (10:36→21:39)
[2020-03-08] MEDS: NICOTINE 21 MG/24 HOURS TOPICAL PATCH TD SCH (10:36)
[2020-03-08] MEDS: PRENATAL VITAMINS W/ FOLIC ACID TABLET (FP) PO SCH (10:36)
[2020-03-08] MEDS: LIDOCAINE 5% TOPICAL PATCH TP SCH (10:37)
[2020-03-08] MEDS: ALBUTEROL SO4 HFA INHALER IH PRN (10:39)
[2020-03-08] MEDS: HALOPERIDOL 5 MG TABLET PO SCH (21:39)
[2020-03-08] MEDS: THIAMINE HCL 100 MG TABLET (FP) PO SCH (21:39)
[2020-03-08] MEDS: MIRTAZAPINE 15 MG TABLET (FP) PO SCH (21:39)
[2020-03-08] MEDS: MELATONIN 5 MG TABLETS PO SCH (21:40)
[2020-03-08] MEDS: METHYL SALICYLATE/MENTHOL OINT 30 GM TUBE TP SCH (21:40)
[2020-03-08] MEDS: LIDOCAINE PATCH REMOVAL MC SCH (21:40)
[2020-03-09] MEDS: IBUPROFEN 600 MG TABLET (FP) PO PRN ×2 (03:43→10:04)
[2020-03-09] MEDS: BUPRENORPHINE/NALOXONE 8 MG/2 MG FILM PACKET SL SCH ×2 (06:38→14:57)
[2020-03-09] MEDS: PRENATAL VITAMINS W/ FOLIC ACID TABLET (FP) PO SCH (10:04)
[2020-03-09] MEDS: hydrOXYzine PAMOATE 25 MG CAPSULE (FP) PO PRN (10:04)
[2020-03-09] MEDS: NICOTINE 21 MG/24 HOURS TOPICAL PATCH TD SCH (10:05)
[2020-03-09] MEDS: METHOCARBAMOL 500 MG TABLET PO SCH ×4 (10:05→21:06)
[2020-03-09] MEDS: LIDOCAINE 5% TOPICAL PATCH TP SCH (10:05)
[2020-03-09] MEDS: DOXAZOSIN MESYLATE 4 MG TABLET PO SCH (10:05)
[2020-03-09] MEDS: MAG HYDROX/AL HYDROX/SIMETH 30 ML UNIT-DOSE CUP PO PRN (10:05)
[2020-03-09] MEDS: ALBUTEROL SO4 HFA INHALER IH PRN (10:08)
[2020-03-09] MEDS: LIDOCAINE PATCH REMOVAL MC SCH (21:06)
[2020-03-09] MEDS: MELATONIN 5 MG TABLETS PO SCH (21:06)
[2020-03-09] MEDS: MIRTAZAPINE 15 MG TABLET (FP) PO SCH (21:06)
[2020-03-09] MEDS: HALOPERIDOL 5 MG TABLET PO SCH (21:06)
[2020-03-09] MEDS: THIAMINE HCL 100 MG TABLET (FP) PO SCH (21:06)
[2020-03-09] MEDS: METHYL SALICYLATE/MENTHOL OINT 30 GM TUBE TP SCH (21:07)
[2020-03-10] MEDS: IBUPROFEN 600 MG TABLET (FP) PO PRN (03:56)
[2020-03-10] MEDS: BUPRENORPHINE/NALOXONE 8 MG/2 MG FILM PACKET SL SCH ×2 (06:08→13:49)
[2020-03-10] MEDS: hydrOXYzine PAMOATE 25 MG CAPSULE (FP) PO PRN ×2 (10:13→13:50)
[2020-03-10] MEDS: PRENATAL VITAMINS W/ FOLIC ACID TABLET (FP) PO SCH (10:13)
[2020-03-10] MEDS: METHOCARBAMOL 500 MG TABLET PO SCH ×4 (10:13→21:28)
[2020-03-10] MEDS: DOXAZOSIN MESYLATE 4 MG TABLET PO SCH (10:14)
[2020-03-10] MEDS: LIDOCAINE 5% TOPICAL PATCH TP SCH (10:14)
[2020-03-10] MEDS: NICOTINE 21 MG/24 HOURS TOPICAL PATCH TD SCH (10:14)
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
[2020-03-10] MEDS: THIAMINE HCL 100 MG TABLET (FP) PO SCH (21:28)
[2020-03-10] MEDS: LIDOCAINE PATCH REMOVAL MC SCH (21:28)
[2020-03-10] MEDS: HALOPERIDOL 5 MG TABLET PO SCH (21:28)
[2020-03-10] MEDS: SUVOREXANT 5 MG TABLET PO PRN (21:29)
[2020-03-10] MEDS ORDERED: PT OWN MED DRAWER 7, Y5N ONE (21:30)
[2020-03-10] MEDS: METHYL SALICYLATE/MENTHOL OINT 30 GM TUBE TP SCH (21:30)
[2020-03-11] MEDS: IBUPROFEN 600 MG TABLET (FP) PO PRN (02:26)
[2020-03-11] MEDS: NICOTINE POLACRILEX 2 MG GUM BUC PRN (02:28)
[2020-03-11] MEDS: BUPRENORPHINE/NALOXONE 8 MG/2 MG FILM PACKET SL SCH ×2 (06:01→14:57)
[2020-03-11] MEDS ORDERED: PT OWN MED DRAWER 7, Y5N ONE ×2 (08:42→20:12)
[2020-03-11] MEDS: METHOCARBAMOL 500 MG TABLET PO SCH ×4 (10:15→21:09)
[2020-03-11] MEDS: PRENATAL VITAMINS W/ FOLIC ACID TABLET (FP) PO SCH (10:15)
[2020-03-11] MEDS: NICOTINE 21 MG/24 HOURS TOPICAL PATCH TD SCH (10:15)
[2020-03-11] MEDS: DOXAZOSIN MESYLATE 4 MG TABLET PO SCH (10:15)
[2020-03-11] MEDS: hydrOXYzine PAMOATE 25 MG CAPSULE (FP) PO PRN ×2 (10:15→14:57)
[2020-03-11] MEDS: LIDOCAINE 5% TOPICAL PATCH TP SCH (10:16)
[2020-03-11] MEDS: HALOPERIDOL 5 MG TABLET PO SCH (21:09)
[2020-03-11] MEDS: METHYL SALICYLATE/MENTHOL OINT 30 GM TUBE TP SCH (21:10)
[2020-03-11] MEDS: LIDOCAINE PATCH REMOVAL MC SCH (21:10)
[2020-03-11] MEDS: THIAMINE HCL 100 MG TABLET (FP) PO SCH (21:10)
[2020-03-12] MEDS: IBUPROFEN 600 MG TABLET (FP) PO PRN (03:11)
[2020-03-12] MEDS: BUPRENORPHINE/NALOXONE 8 MG/2 MG FILM PACKET SL SCH ×2 (06:41→14:22)
[2020-03-12] MEDS: NICOTINE 21 MG/24 HOURS TOPICAL PATCH TD SCH (09:45)
[2020-03-12] MEDS: LIDOCAINE 5% TOPICAL PATCH TP SCH (09:45)
[2020-03-12] MEDS: hydrOXYzine PAMOATE 25 MG CAPSULE (FP) PO PRN (09:45)
[2020-03-12] MEDS: DOXAZOSIN MESYLATE 4 MG TABLET PO SCH (09:45)
[2020-03-12] MEDS: PRENATAL VITAMINS W/ FOLIC ACID TABLET (FP) PO SCH (09:45)
[2020-03-12] MEDS: METHOCARBAMOL 500 MG TABLET PO SCH ×4 (09:46→21:16)
[2020-03-12] MEDS: MAG HYDROX/AL HYDROX/SIMETH 30 ML UNIT-DOSE CUP PO PRN (14:58)
[2020-03-12] MEDS: THIAMINE HCL 100 MG TABLET (FP) PO SCH (21:16)
[2020-03-12] MEDS: HALOPERIDOL 5 MG TABLET PO SCH (21:16)
[2020-03-12] MEDS: SUVOREXANT 5 MG TABLET PO PRN (21:17)
[2020-03-12] MEDS: LIDOCAINE PATCH REMOVAL MC SCH (21:17)
[2020-03-12] MEDS: METHYL SALICYLATE/MENTHOL OINT 30 GM TUBE TP SCH (21:19)
[2020-03-12] MEDS ORDERED: PT OWN MED DRAWER 7, Y5N ONE (21:19)
[2020-03-13] MEDS: BUPRENORPHINE/NALOXONE 8 MG/2 MG FILM PACKET SL SCH ×2 (06:11→13:39)
[2020-03-13] MEDS: NICOTINE 21 MG/24 HOURS TOPICAL PATCH TD SCH (10:07)
[2020-03-13] MEDS: LIDOCAINE 5% TOPICAL PATCH TP SCH (10:07)
[2020-03-13] MEDS: DOXAZOSIN MESYLATE 4 MG TABLET PO SCH (10:07)
[2020-03-13] MEDS: hydrOXYzine PAMOATE 25 MG CAPSULE (FP) PO PRN ×2 (10:07→13:38)
[2020-03-13] MEDS: METHOCARBAMOL 500 MG TABLET PO SCH ×2 (10:07→21:17)
[2020-03-13] MEDS: PRENATAL VITAMINS W/ FOLIC ACID TABLET (FP) PO SCH (10:07)
[2020-03-13] MEDS: ALBUTEROL SO4 HFA INHALER IH PRN (10:08)
--- NOTE | 2020-03-13 12:26 | PN ---
[facility] Progress Note Note: Vital Signs Temperature 98 F 03/13/20 06:10 Pulse Rate 86 03/13/20 08:59 Respiratory Rate 16 03/13/20 08:59 Blood Pressure 149/72 03/13/20 08:59 O2 Sat by Pulse Oximetry (%) 98 03/13/20 06:10 Laboratory Tests 03/02/20 03/03/20 03/03/20 16:54 06:14 11:30 POC Glucometer 123 112 Hemoglobin A1c % 5.2 03/03/20 03/04/20 03/04/20 16:32 05:56 16:37 POC Glucometer 128 103 129 Hemoglobin A1c % Patient evaluated for c/o swelling of feet. He denies any recent injury to feet, cough, sob and calf swelling. Patient states having symptoms before but cannot recall being treated for symptoms with medications. States Robaxin provides minimal pain relief and would like to change decrease dosing of medication. PE: alert and oriented x 3 skin warm and dry neck supple, no jvd in NAD ext full rom, amb ad sarah +1 bilateral pedal edema A/P: Bilateral pedal edema Will decrease Robaxin to 500mg po BID start HCTZ 12.5mg po daily leg elevation while in bed/chair as needed continue to monitor clinically
[2020-03-13] MEDS: IBUPROFEN 600 MG TABLET (FP) PO PRN (13:39)
[2020-03-13] MEDS ORDERED: HYDROCHLOROTHIAZIDE 12.5 MG CAPSULE (FP) PO ONE (14:15)
[2020-03-13] MEDS: LIDOCAINE PATCH REMOVAL MC SCH (21:16)
[2020-03-13] MEDS: HALOPERIDOL 5 MG TABLET PO SCH (21:16)
[2020-03-13] MEDS: SUVOREXANT 5 MG TABLET PO PRN (21:16)
[2020-03-13] MEDS: THIAMINE HCL 100 MG TABLET (FP) PO SCH (21:16)
[2020-03-13] MEDS: METHYL SALICYLATE/MENTHOL OINT 30 GM TUBE TP SCH (21:18)
[2020-03-14] MEDS: BUPRENORPHINE/NALOXONE 8 MG/2 MG FILM PACKET SL SCH ×2 (06:19→13:31)
[2020-03-14] MEDS: HYDROCHLOROTHIAZIDE 12.5 MG CAPSULE (FP) PO SCH (09:44)
[2020-03-14] MEDS: LIDOCAINE 5% TOPICAL PATCH TP SCH (09:44)
[2020-03-14] MEDS: DOXAZOSIN MESYLATE 4 MG TABLET PO SCH (09:44)
[2020-03-14] MEDS: PRENATAL VITAMINS W/ FOLIC ACID TABLET (FP) PO SCH (09:44)
[2020-03-14] MEDS: NICOTINE 21 MG/24 HOURS TOPICAL PATCH TD SCH (09:44)
[2020-03-14] MEDS: METHOCARBAMOL 500 MG TABLET PO SCH ×2 (09:45→21:14)
[2020-03-14] MEDS: IBUPROFEN 600 MG TABLET (FP) PO PRN (13:31)
[2020-03-14] MEDS: LIDOCAINE PATCH REMOVAL MC SCH (21:14)
[2020-03-14] MEDS: HALOPERIDOL 5 MG TABLET PO SCH (21:14)
[2020-03-14] MEDS: THIAMINE HCL 100 MG TABLET (FP) PO SCH (21:14)
[2020-03-14] MEDS: SUVOREXANT 5 MG TABLET PO PRN (21:15)
[2020-03-14] MEDS: METHYL SALICYLATE/MENTHOL OINT 30 GM TUBE TP SCH (21:16)
[2020-03-15] MEDS: BUPRENORPHINE/NALOXONE 8 MG/2 MG FILM PACKET SL SCH (06:46)
[2020-03-15] MEDS: NICOTINE 21 MG/24 HOURS TOPICAL PATCH TD SCH (09:14)
[2020-03-15] MEDS: HYDROCHLOROTHIAZIDE 12.5 MG CAPSULE (FP) PO SCH (09:14)
[2020-03-15] MEDS: PRENATAL VITAMINS W/ FOLIC ACID TABLET (FP) PO SCH (09:14)
[2020-03-15] MEDS: LIDOCAINE 5% TOPICAL PATCH TP SCH (09:14)
[2020-03-15] MEDS: METHOCARBAMOL 500 MG TABLET PO SCH ×2 (09:14→21:14)
[2020-03-15] MEDS: DOXAZOSIN MESYLATE 4 MG TABLET PO SCH (09:14)
[2020-03-15] MEDS ORDERED: BUPRENORPHINE/NALOXONE 8 MG/2 MG FILM PACKET SL ONE (14:00)
[2020-03-15] MEDS ORDERED: PT OWN MED DRAWER 7, Y5N ONE (15:52)
[2020-03-15] MEDS: HALOPERIDOL 5 MG TABLET PO SCH (21:14)
[2020-03-15] MEDS: THIAMINE HCL 100 MG TABLET (FP) PO SCH (21:14)
[2020-03-15] MEDS: METHYL SALICYLATE/MENTHOL OINT 30 GM TUBE TP SCH (21:14)
[2020-03-15] MEDS: SUVOREXANT 5 MG TABLET PO PRN (21:15)
[2020-03-15] MEDS: LIDOCAINE PATCH REMOVAL MC SCH (21:15)
[2020-03-16] MEDS: IBUPROFEN 600 MG TABLET (FP) PO PRN (06:27)
[2020-03-16] MEDS: BUPRENORPHINE/NALOXONE 8 MG/2 MG FILM PACKET SL SCH ×2 (06:27→14:37)
[2020-03-16] MEDS: NICOTINE 21 MG/24 HOURS TOPICAL PATCH TD SCH (10:13)
[2020-03-16] MEDS: DOXAZOSIN MESYLATE 4 MG TABLET PO SCH (10:13)
[2020-03-16] MEDS: HYDROCHLOROTHIAZIDE 12.5 MG CAPSULE (FP) PO SCH (10:13)
[2020-03-16] MEDS: METHOCARBAMOL 500 MG TABLET PO SCH ×2 (10:13→21:25)
[2020-03-16] MEDS: PRENATAL VITAMINS W/ FOLIC ACID TABLET (FP) PO SCH (10:13)
[2020-03-16] MEDS: LIDOCAINE 5% TOPICAL PATCH TP SCH (10:14)
[2020-03-16] MEDS: hydrOXYzine PAMOATE 25 MG CAPSULE (FP) PO PRN (14:37)
[2020-03-16] MEDS: HALOPERIDOL 5 MG TABLET PO SCH (21:25)
[2020-03-16] MEDS: THIAMINE HCL 100 MG TABLET (FP) PO SCH (21:25)
[2020-03-16] MEDS: METHYL SALICYLATE/MENTHOL OINT 30 GM TUBE TP SCH (21:29)
[2020-03-16] MEDS: LIDOCAINE PATCH REMOVAL MC SCH (21:29)
[2020-03-16] MEDS: SUVOREXANT 5 MG TABLET PO PRN (23:24)
[2020-03-17] MEDS: BUPRENORPHINE/NALOXONE 8 MG/2 MG FILM PACKET SL SCH ×2 (06:24→14:13)
[2020-03-17] MEDS: DOXAZOSIN MESYLATE 4 MG TABLET PO SCH (10:23)
[2020-03-17] MEDS: NICOTINE 21 MG/24 HOURS TOPICAL PATCH TD SCH (10:23)
[2020-03-17] MEDS: PRENATAL VITAMINS W/ FOLIC ACID TABLET (FP) PO SCH (10:23)
[2020-03-17] MEDS: HYDROCHLOROTHIAZIDE 12.5 MG CAPSULE (FP) PO SCH (10:24)
[2020-03-17] MEDS: ALBUTEROL SO4 HFA INHALER IH PRN (10:24)
[2020-03-17] MEDS: METHOCARBAMOL 500 MG TABLET PO SCH (10:24)
[2020-03-17] MEDS: LIDOCAINE 5% TOPICAL PATCH TP SCH (10:24)
[2020-03-17] MEDS: IBUPROFEN 600 MG TABLET (FP) PO PRN (10:37)
[2020-03-17] MEDS: METHOCARBAMOL 750 MG TABLET PO SCH ×2 (10:55→19:39)
[2020-03-17] MEDS: NICOTINE POLACRILEX 2 MG GUM BUC PRN ×2 (15:16→19:41)
[2020-03-17] MEDS: HALOPERIDOL 5 MG TABLET PO SCH (21:17)
[2020-03-17] MEDS: LIDOCAINE PATCH REMOVAL MC SCH (21:18)
[2020-03-17] MEDS: THIAMINE HCL 100 MG TABLET (FP) PO SCH (21:19)
[2020-03-17] MEDS: METHYL SALICYLATE/MENTHOL OINT 30 GM TUBE TP SCH (21:19)
[2020-03-18] MEDS: METHOCARBAMOL 750 MG TABLET PO SCH ×3 (02:00→18:33)
[2020-03-18] MEDS: BUPRENORPHINE/NALOXONE 8 MG/2 MG FILM PACKET SL SCH ×2 (06:30→13:49)
[2020-03-18] MEDS: PRENATAL VITAMINS W/ FOLIC ACID TABLET (FP) PO SCH (10:00)
[2020-03-18] MEDS: hydrOXYzine PAMOATE 25 MG CAPSULE (FP) PO PRN ×2 (10:00→13:49)
[2020-03-18] MEDS: HYDROCHLOROTHIAZIDE 12.5 MG CAPSULE (FP) PO SCH (10:00)
[2020-03-18] MEDS: DOXAZOSIN MESYLATE 4 MG TABLET PO SCH (10:01)
[2020-03-18] MEDS: NICOTINE 21 MG/24 HOURS TOPICAL PATCH TD SCH (10:01)
[2020-03-18] MEDS: LIDOCAINE 5% TOPICAL PATCH TP SCH (10:01)
[2020-03-18] MEDS: LIDOCAINE PATCH REMOVAL MC SCH (21:14)
[2020-03-18] MEDS: THIAMINE HCL 100 MG TABLET (FP) PO SCH (21:14)
[2020-03-18] MEDS: HALOPERIDOL 5 MG TABLET PO SCH (21:14)
[2020-03-18] MEDS: METHYL SALICYLATE/MENTHOL OINT 30 GM TUBE TP SCH (21:14)
[2020-03-18] MEDS: SUVOREXANT 5 MG TABLET PO PRN (21:15)
[2020-03-19] MEDS: METHOCARBAMOL 750 MG TABLET PO SCH ×3 (02:50→19:06)
[2020-03-19] MEDS: BUPRENORPHINE/NALOXONE 8 MG/2 MG FILM PACKET SL SCH ×2 (07:33→14:31)
[2020-03-19] MEDS: PRENATAL VITAMINS W/ FOLIC ACID TABLET (FP) PO SCH (10:30)
[2020-03-19] MEDS: hydrOXYzine PAMOATE 25 MG CAPSULE (FP) PO PRN (10:31)
[2020-03-19] MEDS: DOXAZOSIN MESYLATE 4 MG TABLET PO SCH (10:32)
[2020-03-19] MEDS: LIDOCAINE 5% TOPICAL PATCH TP SCH (10:32)
[2020-03-19] MEDS: HYDROCHLOROTHIAZIDE 12.5 MG CAPSULE (FP) PO SCH (10:33)
[2020-03-19] MEDS: NICOTINE 21 MG/24 HOURS TOPICAL PATCH TD SCH (10:33)
[2020-03-19] MEDS: IBUPROFEN 600 MG TABLET (FP) PO PRN (14:31)
[2020-03-19] MEDS ORDERED: PT OWN MED DRAWER 7, Y5N ONE (19:04)
[2020-03-19] MEDS: METHYL SALICYLATE/MENTHOL OINT 30 GM TUBE TP SCH (21:23)
[2020-03-19] MEDS: THIAMINE HCL 100 MG TABLET (FP) PO SCH (21:23)
[2020-03-19] MEDS: HALOPERIDOL 5 MG TABLET PO SCH (21:23)
[2020-03-19] MEDS: SUVOREXANT 5 MG TABLET PO PRN (21:23)
[2020-03-19] MEDS: LIDOCAINE PATCH REMOVAL MC SCH (21:23)
[2020-03-20] MEDS ORDERED: PT OWN MED DRAWER 7, Y5N ONE ×2 (06:01→19:19)
[2020-03-20] MEDS: METHOCARBAMOL 750 MG TABLET PO SCH ×3 (06:12→21:32)
[2020-03-20] MEDS: BUPRENORPHINE/NALOXONE 8 MG/2 MG FILM PACKET SL SCH ×2 (06:12→14:29)
[2020-03-20] MEDS: NICOTINE 21 MG/24 HOURS TOPICAL PATCH TD SCH (09:15)
[2020-03-20] MEDS: LIDOCAINE 5% TOPICAL PATCH TP SCH (09:15)
[2020-03-20] MEDS: hydrOXYzine PAMOATE 25 MG CAPSULE (FP) PO PRN (09:16)
[2020-03-20] MEDS: PRENATAL VITAMINS W/ FOLIC ACID TABLET (FP) PO SCH (09:16)
[2020-03-20] MEDS: HYDROCHLOROTHIAZIDE 12.5 MG CAPSULE (FP) PO SCH (09:16)
[2020-03-20] MEDS: DOXAZOSIN MESYLATE 4 MG TABLET PO SCH (09:16)
[2020-03-20] MEDS ORDERED: BUPRENORPHINE/NALOXONE 8 MG/2 MG FILM PACKET SL ONE (09:38)
[2020-03-20] MEDS: HALOPERIDOL 5 MG TABLET PO SCH (21:33)
[2020-03-20] MEDS: LIDOCAINE PATCH REMOVAL MC SCH (21:33)
[2020-03-20] MEDS: METHYL SALICYLATE/MENTHOL OINT 30 GM TUBE TP SCH (21:33)
[2020-03-20] MEDS: THIAMINE HCL 100 MG TABLET (FP) PO SCH (21:34)
[2020-03-21] MEDS: METHOCARBAMOL 750 MG TABLET PO SCH ×3 (06:49→21:18)
[2020-03-21] MEDS: NICOTINE 21 MG/24 HOURS TOPICAL PATCH TD SCH (10:24)
[2020-03-21] MEDS: BUPRENORPHINE/NALOXONE 8 MG/2 MG FILM PACKET SL SCH ×2 (10:24→14:55)
[2020-03-21] MEDS: HYDROCHLOROTHIAZIDE 12.5 MG CAPSULE (FP) PO SCH (10:24)
[2020-03-21] MEDS: PRENATAL VITAMINS W/ FOLIC ACID TABLET (FP) PO SCH (10:24)
[2020-03-21] MEDS: LIDOCAINE 5% TOPICAL PATCH TP SCH (10:24)
[2020-03-21] MEDS: DOXAZOSIN MESYLATE 4 MG TABLET PO SCH (10:25)
[2020-03-21] MEDS ORDERED: PT OWN MED DRAWER 7, Y5N ONE (20:23)
[2020-03-21] MEDS: THIAMINE HCL 100 MG TABLET (FP) PO SCH (21:18)
[2020-03-21] MEDS: HALOPERIDOL 5 MG TABLET PO SCH (21:18)
[2020-03-21] MEDS: LIDOCAINE PATCH REMOVAL MC SCH (21:18)
[2020-03-21] MEDS: METHYL SALICYLATE/MENTHOL OINT 30 GM TUBE TP SCH (21:19)
[2020-03-21] MEDS: hydrOXYzine PAMOATE 25 MG CAPSULE (FP) PO PRN (22:30)
[2020-03-22] MEDS ORDERED: PT OWN MED DRAWER 7, Y5N ONE ×2 (06:07→20:17)
[2020-03-22] MEDS: METHOCARBAMOL 750 MG TABLET PO SCH ×3 (06:55→21:28)
[2020-03-22] MEDS: NICOTINE 21 MG/24 HOURS TOPICAL PATCH TD SCH (10:17)
[2020-03-22] MEDS: PRENATAL VITAMINS W/ FOLIC ACID TABLET (FP) PO SCH (10:17)
[2020-03-22] MEDS: DOXAZOSIN MESYLATE 4 MG TABLET PO SCH (10:17)
[2020-03-22] MEDS: hydrOXYzine PAMOATE 25 MG CAPSULE (FP) PO PRN ×2 (10:17→14:37)
[2020-03-22] MEDS: BUPRENORPHINE/NALOXONE 8 MG/2 MG FILM PACKET SL SCH ×2 (10:18→14:37)
[2020-03-22] MEDS: LIDOCAINE 5% TOPICAL PATCH TP SCH (10:18)
[2020-03-22] MEDS: HYDROCHLOROTHIAZIDE 12.5 MG CAPSULE (FP) PO SCH (10:18)
[2020-03-22] MEDS: IBUPROFEN 600 MG TABLET (FP) PO PRN (19:32)
[2020-03-22] MEDS: SUVOREXANT 5 MG TABLET PO PRN (21:27)
[2020-03-22] MEDS: HALOPERIDOL 5 MG TABLET PO SCH (21:28)
[2020-03-22] MEDS: METHYL SALICYLATE/MENTHOL OINT 30 GM TUBE TP SCH (21:29)
[2020-03-22] MEDS: THIAMINE HCL 100 MG TABLET (FP) PO SCH (21:29)
[2020-03-22] MEDS: LIDOCAINE PATCH REMOVAL MC SCH (21:29)
[2020-03-23] MEDS: METHOCARBAMOL 750 MG TABLET PO SCH ×3 (06:35→21:42)
[2020-03-23] MEDS: LIDOCAINE 5% TOPICAL PATCH TP SCH (10:19)
[2020-03-23] MEDS: DOXAZOSIN MESYLATE 4 MG TABLET PO SCH (10:19)
[2020-03-23] MEDS: HYDROCHLOROTHIAZIDE 12.5 MG CAPSULE (FP) PO SCH (10:19)
[2020-03-23] MEDS: hydrOXYzine PAMOATE 25 MG CAPSULE (FP) PO PRN (10:19)
[2020-03-23] MEDS: NICOTINE 21 MG/24 HOURS TOPICAL PATCH TD SCH (10:19)
[2020-03-23] MEDS: BUPRENORPHINE/NALOXONE 8 MG/2 MG FILM PACKET SL SCH ×2 (10:19→14:22)
[2020-03-23] MEDS: PRENATAL VITAMINS W/ FOLIC ACID TABLET (FP) PO SCH (10:19)
[2020-03-23] MEDS: ALBUTEROL SO4 HFA INHALER IH PRN (10:21)
[2020-03-23] MEDS: HALOPERIDOL 5 MG TABLET PO SCH (21:15)
[2020-03-23] MEDS: THIAMINE HCL 100 MG TABLET (FP) PO SCH (21:15)
[2020-03-23] MEDS: SUVOREXANT 5 MG TABLET PO PRN (21:15)
[2020-03-23] MEDS: METHYL SALICYLATE/MENTHOL OINT 30 GM TUBE TP SCH (21:17)
[2020-03-23] MEDS: LIDOCAINE PATCH REMOVAL MC SCH (21:19)
[2020-03-23] MEDS: NICOTINE POLACRILEX 2 MG GUM BUC PRN (21:42)
[2020-03-24] MEDS: METHOCARBAMOL 750 MG TABLET PO SCH ×3 (06:24→21:19)
[2020-03-24] MEDS: hydrOXYzine PAMOATE 25 MG CAPSULE (FP) PO PRN (10:31)
[2020-03-24] MEDS: PRENATAL VITAMINS W/ FOLIC ACID TABLET (FP) PO SCH (10:31)
[2020-03-24] MEDS: NICOTINE 21 MG/24 HOURS TOPICAL PATCH TD SCH (10:31)
[2020-03-24] MEDS: DOXAZOSIN MESYLATE 4 MG TABLET PO SCH (10:31)
[2020-03-24] MEDS: LIDOCAINE 5% TOPICAL PATCH TP SCH (10:31)
[2020-03-24] MEDS: HYDROCHLOROTHIAZIDE 12.5 MG CAPSULE (FP) PO SCH (10:31)
[2020-03-24] MEDS: BUPRENORPHINE/NALOXONE 8 MG/2 MG FILM PACKET SL SCH ×2 (10:32→14:32)
[2020-03-24] MEDS: ALBUTEROL SO4 HFA INHALER IH PRN (10:32)
[2020-03-24] MEDS: THIAMINE HCL 100 MG TABLET (FP) PO SCH (21:19)
[2020-03-24] MEDS: HALOPERIDOL 5 MG TABLET PO SCH (21:19)
[2020-03-24] MEDS: LIDOCAINE PATCH REMOVAL MC SCH (21:19)
[2020-03-24] MEDS: SUVOREXANT 5 MG TABLET PO PRN (21:19)
[2020-03-24] MEDS: NICOTINE POLACRILEX 2 MG GUM BUC PRN (21:20)
[2020-03-24] MEDS: METHYL SALICYLATE/MENTHOL OINT 30 GM TUBE TP SCH (21:21)
[2020-03-25] MEDS: METHOCARBAMOL 750 MG TABLET PO SCH (07:00)
--- NOTE | 2020-03-25 08:33 | PN ---
[facility] Progress Note Note: Patient is discharge today. scripts for 30 days supply of medications(Wellbutrin XL 150 mg/day, Haldol 5 mg/hs) are electronically transmitted to [facility] [address] [facility] [place] [address]
--- NOTE | 2020-03-25 08:47 | DS ---
[facility] Rehab Discharge Summary - [facility] Rehab Discharge Summary Admission Date: 03/01/20 Discharge Date: 03/25/20 - History Present History: Alcohol dependence, Opioid dependence Pertinent Past History: Patient is a 54 y/o male with a history of HTN and asthma who presents for alcohol and heroin use. Patient started drinking at age 10. Patient drinks 1/2 pint a day and reports he needs to drink every day. Patient denies ever having a seizure. Positive for blackouts and needing an eyeopener. patient has done rehab in the past but has not been able to be sober for an extended period of time. patient also uses heroin. Started using Heroin at 38. Uses 1 bundle (10 bags) a day. Overdosed once. Denies using IV. Patient last used today. Patient is on a suboxone program. SGHX: none psych:bipolar, schizophrenic allx: none social: apartment, unemployed ] - Discharge Physical Exam Vital Signs: Vital Signs Temperature 98 F 03/25/20 06:41 Pulse Rate 75 03/25/20 06:41 Respiratory Rate 18 03/25/20 06:41 Blood Pressure 120/73 03/25/20 06:41 O2 Sat by Pulse Oximetry (%) 99 03/25/20 06:41 Pertinent Admission Physical Exam Findings: Physical General Appearance: No apparent distressObese, HEENTM: Normocephalic, EOMI, PERRLA Respiratory: No Respiratory Distress Cardiology: Regular Rhythm, Regular Rate, S1, S2 Abdominal: +BS Non Tender, Soft Musculoskeletal: full range of Motion, shuffling gait, full weight bearing with cane Extremities: Edema, +pulses Neurological: Fully Oriented, CN 2-12 intact - Treatment Discharge Condition: Discharge condition good (Medically stable for discharge), Outpatient referral accepted (patient will go to [facility]) Hospital Course: patient attended groups, had 1:1 with his counselor, was seen by the psychiatric service. He was adherent to his medication regimen and treatment plan. He sustained a fall while in rehab, but refused transport to [facility] ER for evaluation. He had an x-ray of the sacrum that showed no injury, he has chronic lower leg edema. - Medication Discharge Medications: Ambulatory Orders Albuterol Sulfate [Albuterol Sulfate Hfa] 2 puff IH QID 30 Days #1 inhaler 03/25/20 Buprenorphine HCl/Naloxone HCl [Suboxone 8 mg-2 mg Sl Tablets] 2 film PO DAILY 7 Days #14 tab.sl MDD 16mg 03/25/20 Buprenorphine/Naloxone [Suboxone 8Mg/2Mg Sl Film -] 1 film SL DAILY 7 Days #7 film MDD 8mg 03/25/20 Bupropion HCl [Wellbutrin Xl -] 150 mg PO DAILY #30 tab.sr.24h 03/25/20 Doxazosin Mesylate [Cardura -] 2 mg PO DAILY 30 Days #30 tablet 03/25/20 Haloperidol [Haldol -] 5 mg PO HS #30 tablet 03/25/20 - Medication-Assisted Treatment (MAT) Medication-Assisted Treatment (MAT): Yes Medication Prescribed: Suboxone MAT Follow-up Referral: [facility] - Discharge Instructions Diet, activity, other medical instructions: Diet: as tolerated Activity: as tolerated Other medical instructions: Please follow up with aftercare referral. - Diagnosis (1) Alcohol dependence Current Visit: Yes Status: Chronic (2) Opioid dependence Current Visit: Yes Status: Chronic (3) Heroin addiction Current Visit: No Status: Chronic - Follow-up Referral Minutes to complete discharge: 20 - AMA Did Patient Leave Against Medical Advice: No
[2020-03-25 09:00] VITALS: BP 140/73; PULSE 76; TEMP 97
[2020-03-25] MEDS: PRENATAL VITAMINS W/ FOLIC ACID TABLET (FP) PO SCH (10:29)
[2020-03-25] MEDS: hydrOXYzine PAMOATE 25 MG CAPSULE (FP) PO PRN (10:29)
[2020-03-25] MEDS: BUPRENORPHINE/NALOXONE 8 MG/2 MG FILM PACKET SL SCH (10:29)
[2020-03-25] MEDS: DOXAZOSIN MESYLATE 4 MG TABLET PO SCH (10:30)
[2020-03-25] MEDS: HYDROCHLOROTHIAZIDE 12.5 MG CAPSULE (FP) PO SCH (10:30)
[2020-03-25] MEDS: LIDOCAINE 5% TOPICAL PATCH TP SCH (10:30)
[2020-03-25] MEDS: NICOTINE 21 MG/24 HOURS TOPICAL PATCH TD SCH (10:30)
== END 2020-03-25 10:35 | disposition home or self-care (01) | DRG 772 ==
LOC: YASAS 14:35 → Y3W 14:36
PROVIDERS: ADMIT Allergy & Immunology; ATTEND Allergy & Immunology
PROC: HZ42ZZZ Group Counseling for Substance Abuse Treatment, Cognitive-Behavioral (ICD-10-PCS; principal; 2020-03-01)
DX: F10.20 Alcohol dependence, uncomplicated (principal); F11.20 Opioid dependence, uncomplicated; F17.210 Nicotine dependence, cigarettes, uncomplicated; F19.282 Other psychoactive substance dependence with psychoactive substance-induced sleep disorder; F20.9 Schizophrenia, unspecified; F31.9 Bipolar disorder, unspecified; I10 Essential (primary) hypertension; J45.909 Unspecified asthma, uncomplicated; N40.0 Benign prostatic hyperplasia without lower urinary tract symptoms; R60.0 Localized edema; M54.5 Low back pain; W01.0XXA Fall on same level from slipping, tripping and stumbling without subsequent striking against object, initial encounter; Y93.89 Activity, other specified; Y92.231 Patient bathroom in hospital as the place of occurrence of the external cause; Y99.8 Other external cause status; Z99.89 Dependence on other enabling machines and devices; Z56.0 Unemployment, unspecified
CPT/HCPCS: 72220-TC-FY; 82962; 83036

== ENCOUNTER 2020-10-13 14:00 | Inpatient (IN) | payer OTHER ==
[2020-10-13] MEDS ORDERED: MAGNESIUM CITRATE 300 ML BOTTLE PO PRN (15:10)
[2020-10-13] MEDS ORDERED: LOPERAMIDE HCL 2 MG CAPSULE PO PRN (15:10)
[2020-10-13] MEDS ORDERED: MAGNESIUM HYDROX 2400MG/30ML ORAL SUSPENSION 30 ML CUP PO PRN (15:10)
[2020-10-13] MEDS ORDERED: MAG HYDROX/AL HYDROX/SIMETH 30 ML UNIT-DOSE CUP PO PRN (15:10)
[2020-10-13] MEDS ORDERED: guaiFENesin 200 MG/10 ML 10 ML UNIT-DOSE CUPS PO PRN (15:10)
[2020-10-13] MEDS ORDERED: P-EPHED 60MG/TRIPROLIDI 2.5MG TABLET PO PRN (15:10)
[2020-10-13 15:57] VITALS: BMI 35.6
[2020-10-13 17:02] LABS: HEMATOCRIT 41.1 % (35.4-49); HEMOGLOBIN 13.6 GM/dL (11.7-16.9); MCH 30.4 pg (25.7-33.7); MCHC 33.2 g/dl (32.0-35.9); MEAN CELL VOLUME 91.4 fl (80-96); MEAN PLT VOLUME 9.6 fl (7.5-11.1); PLATELET COUNT 263 K/MM3 (134-434); RBC 4.49 M/mm3 (4.00-5.60); RDW 13.8 % (11.9-15.9); WHITE BLOOD COUNT 4.8 K/mm3 (4.0-10.0)
[2020-10-13 17:08] LABS: CALCIUM 9.2 mg/dL (8.5-10.1)
[2020-10-13 17:09] LABS: ALBUMIN 3.9 g/dl (3.4-5.0); BLOOD UREA NITROGEN 13.7 mg/dL (7-18)
[2020-10-13 17:13] LABS: BILIRUBIN,TOTAL 0.4 mg/dL (0.2-1); TOT PROT 8.3 g/dl (6.4-8.2)
[2020-10-13] MEDS ORDERED: ACETAMINOPHEN 325 MG TABLET (FP) ONE (17:14)
[2020-10-13] MEDS: ACETAMINOPHEN 325 MG TABLET (FP) PO PRN (17:16)
[2020-10-13] MEDS: ALBUTEROL SO4 HFA INHALER IH SCH ×2 (18:49→21:18)
[2020-10-13] MEDS: PRENATAL VITAMINS W/ FOLIC ACID TABLET (FP) PO SCH (18:50)
[2020-10-13] MEDS: hydrOXYzine PAMOATE 25 MG CAPSULE (FP) PO SCH ×2 (18:51→21:17)
[2020-10-13] MEDS: NICOTINE 7 MG/24 HOURS TOPICAL PATCH TD SCH (18:52)
[2020-10-13] MEDS: THIAMINE HCL 100 MG TABLET (FP) PO SCH (21:15)
[2020-10-13] MEDS: MELATONIN 5 MG TABLETS PO SCH (21:15)
[2020-10-13] MEDS: BUPRENORPHINE/NALOXONE 8 MG/2 MG FILM PACKET SL SCH (21:16)
[2020-10-13 21:56] LABS: EPI CELLS 4 /uL (0-25.1); HYALINE CASTS 1 /uL (0-3.1); URINE APPEARANCE CLEAR; URINE BACTERIA 23 /uL (0-1359); URINE BILIRUBIN NEGATIVE (NEGATIVE); URINE COLOR YELLOW; URINE GLUCOSE (UA) NEGATIVE (NEGATIVE); URINE KETONE NEGATIVE (NEGATIVE); URINE LEUK ESTERASE NEGATIVE (NEGATIVE); URINE NITRITE NEGATIVE (NEGATIVE); URINE PROTEIN TRACE (NEGATIVE); URINE RBC 289 /uL (0-23.9); URINE UROBILINOGEN 0.2 mg/dL (0.2-1.0); URINE WBC 6 /uL (0-25.8)
[2020-10-13] MEDS: DOXAZOSIN MESYLATE 2 MG TABLET PO SCH (22:58)
[2020-10-14] MEDS: hydrOXYzine PAMOATE 25 MG CAPSULE (FP) PO SCH ×5 (06:46→21:15)
[2020-10-14] MEDS: NICOTINE 7 MG/24 HOURS TOPICAL PATCH TD SCH (09:57)
[2020-10-14] MEDS: amLODIPine BESYLATE 5 MG TABLET (FP) PO SCH (09:58)
[2020-10-14] MEDS: PRENATAL VITAMINS W/ FOLIC ACID TABLET (FP) PO SCH (09:58)
[2020-10-14] MEDS: BUPRENORPHINE/NALOXONE 8 MG/2 MG FILM PACKET SL SCH ×2 (09:58→21:16)
[2020-10-14] MEDS: ALBUTEROL SO4 HFA INHALER IH SCH ×4 (10:02→21:17)
[2020-10-14] MEDS: DOXAZOSIN MESYLATE 2 MG TABLET PO SCH (21:15)
[2020-10-14] MEDS: THIAMINE HCL 100 MG TABLET (FP) PO SCH (21:15)
[2020-10-14] MEDS: MELATONIN 5 MG TABLETS PO SCH (21:15)
[2020-10-15] MEDS: hydrOXYzine PAMOATE 25 MG CAPSULE (FP) PO SCH ×5 (06:42→21:22)
[2020-10-15] MEDS: BUPRENORPHINE/NALOXONE 8 MG/2 MG FILM PACKET SL SCH ×2 (09:44→21:24)
[2020-10-15] MEDS: NICOTINE 7 MG/24 HOURS TOPICAL PATCH TD SCH (09:44)
[2020-10-15] MEDS: amLODIPine BESYLATE 5 MG TABLET (FP) PO SCH (09:44)
[2020-10-15] MEDS: ALBUTEROL SO4 HFA INHALER IH SCH ×4 (09:44→21:23)
[2020-10-15] MEDS: PRENATAL VITAMINS W/ FOLIC ACID TABLET (FP) PO SCH (09:44)
[2020-10-15] MEDS: risperiDONE 1 MG TABLET PO SCH ×2 (14:29→21:22)
[2020-10-15 14:46] LABS: EPI CELLS 3 /uL (0-25.1); HYALINE CASTS 0 /uL (0-3.1); URINE APPEARANCE CLEAR; URINE BACTERIA 20 /uL (0-1359); URINE BILIRUBIN NEGATIVE (NEGATIVE); URINE COLOR YELLOW; URINE GLUCOSE (UA) NEGATIVE (NEGATIVE); URINE KETONE NEGATIVE (NEGATIVE); URINE LEUK ESTERASE NEGATIVE (NEGATIVE); URINE NITRITE NEGATIVE (NEGATIVE); URINE PROTEIN 1+ (NEGATIVE); URINE RBC 543 /uL (0-23.9); URINE UROBILINOGEN 0.2 mg/dL (0.2-1.0); URINE WBC 19 /uL (0-25.8)
[2020-10-15] MEDS: THIAMINE HCL 100 MG TABLET (FP) PO SCH (21:21)
[2020-10-15] MEDS: MELATONIN 5 MG TABLETS PO SCH (21:21)
[2020-10-15] MEDS: DOXAZOSIN MESYLATE 2 MG TABLET PO SCH (21:22)
[2020-10-15] MEDS ORDERED: SUVOREXANT 10 MG TABLET PO PRN (22:00)
[2020-10-16] MEDS: hydrOXYzine PAMOATE 25 MG CAPSULE (FP) PO SCH ×5 (06:26→21:27)
[2020-10-16] MEDS: NICOTINE 7 MG/24 HOURS TOPICAL PATCH TD SCH (10:13)
[2020-10-16] MEDS: risperiDONE 1 MG TABLET PO SCH ×2 (10:14→21:27)
[2020-10-16] MEDS: amLODIPine BESYLATE 5 MG TABLET (FP) PO SCH (10:14)
[2020-10-16] MEDS: ALBUTEROL SO4 HFA INHALER IH SCH ×4 (10:15→21:50)
[2020-10-16] MEDS: BUPRENORPHINE/NALOXONE 8 MG/2 MG FILM PACKET SL SCH ×2 (10:15→21:28)
[2020-10-16] MEDS: PRENATAL VITAMINS W/ FOLIC ACID TABLET (FP) PO SCH (10:15)
[2020-10-16] MEDS: THIAMINE HCL 100 MG TABLET (FP) PO SCH (21:27)
[2020-10-16] MEDS: MELATONIN 5 MG TABLETS PO SCH (21:27)
[2020-10-16] MEDS: DOXAZOSIN MESYLATE 2 MG TABLET PO SCH (21:27)
[2020-10-17 06:06] LABS: SARS-CoV-2 NAA Not Detected (Not Detected)
[2020-10-17] MEDS: hydrOXYzine PAMOATE 25 MG CAPSULE (FP) PO SCH ×5 (07:00→21:37)
[2020-10-17] MEDS: risperiDONE 1 MG TABLET PO SCH ×2 (10:38→21:35)
[2020-10-17] MEDS: BUPRENORPHINE/NALOXONE 8 MG/2 MG FILM PACKET SL SCH ×2 (10:38→21:57)
[2020-10-17] MEDS: amLODIPine BESYLATE 5 MG TABLET (FP) PO SCH (10:38)
[2020-10-17] MEDS: PRENATAL VITAMINS W/ FOLIC ACID TABLET (FP) PO SCH (10:38)
[2020-10-17] MEDS: ALBUTEROL SO4 HFA INHALER IH SCH ×4 (10:41→21:53)
[2020-10-17] MEDS: NICOTINE 7 MG/24 HOURS TOPICAL PATCH TD SCH (10:42)
[2020-10-17] MEDS: DOXAZOSIN MESYLATE 2 MG TABLET PO SCH (21:35)
[2020-10-17] MEDS: MELATONIN 5 MG TABLETS PO SCH (21:35)
[2020-10-17] MEDS: THIAMINE HCL 100 MG TABLET (FP) PO SCH (21:37)
[2020-10-18] MEDS: hydrOXYzine PAMOATE 25 MG CAPSULE (FP) PO SCH ×5 (06:45→21:14)
[2020-10-18] MEDS: BUPRENORPHINE/NALOXONE 8 MG/2 MG FILM PACKET SL SCH ×2 (10:31→21:16)
[2020-10-18] MEDS: risperiDONE 1 MG TABLET PO SCH ×2 (10:31→21:14)
[2020-10-18] MEDS: amLODIPine BESYLATE 5 MG TABLET (FP) PO SCH (10:31)
[2020-10-18] MEDS: NICOTINE 7 MG/24 HOURS TOPICAL PATCH TD SCH (10:32)
[2020-10-18] MEDS: ALBUTEROL SO4 HFA INHALER IH SCH ×4 (10:32→21:14)
[2020-10-18] MEDS: PRENATAL VITAMINS W/ FOLIC ACID TABLET (FP) PO SCH (10:32)
[2020-10-18] MEDS: NICOTINE POLACRILEX 2 MG GUM BC PRN (10:33)
[2020-10-18] MEDS: THIAMINE HCL 100 MG TABLET (FP) PO SCH (21:14)
[2020-10-18] MEDS: MELATONIN 5 MG TABLETS PO SCH (21:14)
[2020-10-18] MEDS: SUVOREXANT 10 MG TABLET PO PRN (21:16)
[2020-10-18] MEDS: DOXAZOSIN MESYLATE 2 MG TABLET PO SCH (21:45)
[2020-10-19] MEDS: hydrOXYzine PAMOATE 25 MG CAPSULE (FP) PO SCH ×5 (06:41→21:18)
[2020-10-19] MEDS: BUPRENORPHINE/NALOXONE 8 MG/2 MG FILM PACKET SL SCH ×2 (09:59→21:20)
[2020-10-19] MEDS: PRENATAL VITAMINS W/ FOLIC ACID TABLET (FP) PO SCH (09:59)
[2020-10-19] MEDS: risperiDONE 1 MG TABLET PO SCH ×2 (10:00→21:18)
[2020-10-19] MEDS: NICOTINE 14 MG/24 HOURS TOPICAL PATCH TD SCH (10:00)
[2020-10-19] MEDS: ALBUTEROL SO4 HFA INHALER IH SCH ×4 (10:02→21:19)
[2020-10-19] MEDS: amLODIPine BESYLATE 5 MG TABLET (FP) PO SCH (10:02)
[2020-10-19] MEDS: THIAMINE HCL 100 MG TABLET (FP) PO SCH (21:18)
[2020-10-19] MEDS: MELATONIN 5 MG TABLETS PO SCH (21:18)
[2020-10-19] MEDS: DOXAZOSIN MESYLATE 2 MG TABLET PO SCH (21:18)
[2020-10-19] MEDS: SUVOREXANT 10 MG TABLET PO PRN (21:18)
[2020-10-20] MEDS: hydrOXYzine PAMOATE 25 MG CAPSULE (FP) PO SCH ×5 (06:10→21:12)
[2020-10-20] MEDS: NICOTINE 14 MG/24 HOURS TOPICAL PATCH TD SCH (10:04)
[2020-10-20] MEDS: PRENATAL VITAMINS W/ FOLIC ACID TABLET (FP) PO SCH (10:04)
[2020-10-20] MEDS: BUPRENORPHINE/NALOXONE 8 MG/2 MG FILM PACKET SL SCH ×2 (10:04→21:13)
[2020-10-20] MEDS: amLODIPine BESYLATE 5 MG TABLET (FP) PO SCH (10:04)
[2020-10-20] MEDS: risperiDONE 1 MG TABLET PO SCH ×2 (10:04→21:12)
[2020-10-20] MEDS: ALBUTEROL SO4 HFA INHALER IH SCH ×4 (10:04→21:14)
[2020-10-20] MEDS: THIAMINE HCL 100 MG TABLET (FP) PO SCH (21:12)
[2020-10-20] MEDS: DOXAZOSIN MESYLATE 2 MG TABLET PO SCH (21:12)
[2020-10-20] MEDS: MELATONIN 5 MG TABLETS PO SCH (21:12)
[2020-10-20] MEDS: SUVOREXANT 10 MG TABLET PO PRN (21:13)
[2020-10-21] MEDS: hydrOXYzine PAMOATE 25 MG CAPSULE (FP) PO SCH (06:40)
[2020-10-21] MEDS: BUPRENORPHINE/NALOXONE 8 MG/2 MG FILM PACKET SL SCH ×2 (10:09→21:14)
[2020-10-21] MEDS: PRENATAL VITAMINS W/ FOLIC ACID TABLET (FP) PO SCH (10:09)
[2020-10-21] MEDS: amLODIPine BESYLATE 5 MG TABLET (FP) PO SCH (10:10)
[2020-10-21] MEDS: ALBUTEROL SO4 HFA INHALER IH SCH ×4 (10:10→21:15)
[2020-10-21] MEDS: risperiDONE 1 MG TABLET PO SCH ×2 (10:10→21:13)
[2020-10-21] MEDS: NICOTINE 14 MG/24 HOURS TOPICAL PATCH TD SCH (10:10)
[2020-10-21] MEDS: DOXAZOSIN MESYLATE 2 MG TABLET PO SCH (21:13)
[2020-10-21] MEDS: MELATONIN 5 MG TABLETS PO SCH (21:13)
[2020-10-21] MEDS: THIAMINE HCL 100 MG TABLET (FP) PO SCH (21:13)
[2020-10-21] MEDS: SUVOREXANT 10 MG TABLET PO PRN (21:13)
[2020-10-22] MEDS: hydrOXYzine PAMOATE 25 MG CAPSULE (FP) PO PRN ×2 (07:07→10:09)
[2020-10-22] MEDS: BUPRENORPHINE/NALOXONE 8 MG/2 MG FILM PACKET SL SCH ×2 (10:09→21:25)
[2020-10-22] MEDS: PRENATAL VITAMINS W/ FOLIC ACID TABLET (FP) PO SCH (10:09)
[2020-10-22] MEDS: amLODIPine BESYLATE 5 MG TABLET (FP) PO SCH (10:09)
[2020-10-22] MEDS: risperiDONE 1 MG TABLET PO SCH ×2 (10:09→21:24)
[2020-10-22] MEDS: ALBUTEROL SO4 HFA INHALER IH SCH ×4 (10:11→21:26)
[2020-10-22] MEDS: NICOTINE 14 MG/24 HOURS TOPICAL PATCH TD SCH (10:13)
[2020-10-22] MEDS: MELATONIN 5 MG TABLETS PO SCH (21:24)
[2020-10-22] MEDS: THIAMINE HCL 100 MG TABLET (FP) PO SCH (21:24)
[2020-10-22] MEDS: DOXAZOSIN MESYLATE 2 MG TABLET PO SCH (21:26)
[2020-10-22] MEDS: SUVOREXANT 10 MG TABLET PO PRN (21:28)
[2020-10-23] MEDS: NICOTINE 14 MG/24 HOURS TOPICAL PATCH TD SCH (10:23)
[2020-10-23] MEDS: BUPRENORPHINE/NALOXONE 8 MG/2 MG FILM PACKET SL SCH ×2 (10:23→21:29)
[2020-10-23] MEDS: amLODIPine BESYLATE 5 MG TABLET (FP) PO SCH (10:23)
[2020-10-23] MEDS: ALBUTEROL SO4 HFA INHALER IH SCH ×4 (10:24→21:30)
[2020-10-23] MEDS: risperiDONE 1 MG TABLET PO SCH ×2 (10:24→21:28)
[2020-10-23] MEDS: PRENATAL VITAMINS W/ FOLIC ACID TABLET (FP) PO SCH (10:25)
[2020-10-23] MEDS: THIAMINE HCL 100 MG TABLET (FP) PO SCH (21:28)
[2020-10-23] MEDS: DOXAZOSIN MESYLATE 2 MG TABLET PO SCH (21:28)
[2020-10-23] MEDS: MELATONIN 5 MG TABLETS PO SCH (21:28)
[2020-10-23] MEDS: SUVOREXANT 10 MG TABLET PO PRN (21:29)
[2020-10-24] MEDS: BUPRENORPHINE/NALOXONE 8 MG/2 MG FILM PACKET SL SCH ×2 (09:53→21:16)
[2020-10-24] MEDS: amLODIPine BESYLATE 5 MG TABLET (FP) PO SCH (09:53)
[2020-10-24] MEDS: NICOTINE 14 MG/24 HOURS TOPICAL PATCH TD SCH (09:53)
[2020-10-24] MEDS: risperiDONE 1 MG TABLET PO SCH ×2 (09:53→21:17)
[2020-10-24] MEDS: ALBUTEROL SO4 HFA INHALER IH SCH ×4 (09:53→21:18)
[2020-10-24] MEDS: PRENATAL VITAMINS W/ FOLIC ACID TABLET (FP) PO SCH (09:53)
[2020-10-24] MEDS: THIAMINE HCL 100 MG TABLET (FP) PO SCH (21:17)
[2020-10-24] MEDS: DOXAZOSIN MESYLATE 2 MG TABLET PO SCH (21:17)
[2020-10-24] MEDS: MELATONIN 5 MG TABLETS PO SCH (21:17)
[2020-10-24] MEDS: SUVOREXANT 10 MG TABLET PO PRN (21:18)
[2020-10-24] MEDS ORDERED: SUVOREXANT 10 MG TABLET PO PRN (22:00)
[2020-10-25] MEDS: NICOTINE 14 MG/24 HOURS TOPICAL PATCH TD SCH (10:11)
[2020-10-25] MEDS: PRENATAL VITAMINS W/ FOLIC ACID TABLET (FP) PO SCH (10:11)
[2020-10-25] MEDS: amLODIPine BESYLATE 5 MG TABLET (FP) PO SCH (10:11)
[2020-10-25] MEDS: BUPRENORPHINE/NALOXONE 8 MG/2 MG FILM PACKET SL SCH ×2 (10:11→21:01)
[2020-10-25] MEDS: risperiDONE 1 MG TABLET PO SCH ×2 (10:11→21:46)
[2020-10-25] MEDS: ALBUTEROL SO4 HFA INHALER IH SCH ×4 (10:12→21:48)
[2020-10-25] MEDS: DOXAZOSIN MESYLATE 2 MG TABLET PO SCH (21:46)
[2020-10-25] MEDS: MELATONIN 5 MG TABLETS PO SCH (21:46)
[2020-10-25] MEDS: THIAMINE HCL 100 MG TABLET (FP) PO SCH (21:46)
[2020-10-25] MEDS ORDERED: BUSPIRONE HCL 10 MG, BUSPIRONE HCL 5 MG PO SCH (22:00)
[2020-10-25] MEDS ORDERED: SUVOREXANT 10 MG TABLET PO PRN (22:00)
[2020-10-25] MEDS ORDERED: busPIRone HCL 5 MG TABLET ONE (22:06)
[2020-10-25] MEDS ORDERED: busPIRone HCL 10 MG TABLET (FP) ONE (22:06)
[2020-10-25] MEDS: SUVOREXANT 15 MG TABLET PO PRN (22:14)
[2020-10-26] MEDS: ALBUTEROL SO4 HFA INHALER IH SCH ×4 (10:21→21:36)
[2020-10-26] MEDS: PRENATAL VITAMINS W/ FOLIC ACID TABLET (FP) PO SCH (10:21)
[2020-10-26] MEDS: risperiDONE 1 MG TABLET PO SCH ×2 (10:21→21:34)
[2020-10-26] MEDS: NICOTINE 14 MG/24 HOURS TOPICAL PATCH TD SCH (10:21)
[2020-10-26] MEDS: NICOTINE POLACRILEX 2 MG GUM BC PRN ×2 (10:23→18:12)
[2020-10-26] MEDS: BUPRENORPHINE/NALOXONE 8 MG/2 MG FILM PACKET SL SCH ×2 (10:24→21:41)
[2020-10-26] MEDS: amLODIPine BESYLATE 5 MG TABLET (FP) PO SCH (13:16)
[2020-10-26] MEDS: hydrOXYzine PAMOATE 25 MG CAPSULE (FP) PO PRN (18:11)
[2020-10-26] MEDS: MELATONIN 5 MG TABLETS PO SCH (21:35)
[2020-10-26] MEDS: DOXAZOSIN MESYLATE 2 MG TABLET PO SCH (21:35)
[2020-10-26] MEDS: THIAMINE HCL 100 MG TABLET (FP) PO SCH (21:36)
[2020-10-26] MEDS: SUVOREXANT 15 MG TABLET PO PRN (21:41)
[2020-10-27] MEDS: risperiDONE 1 MG TABLET PO SCH ×2 (10:19→21:36)
[2020-10-27] MEDS: PRENATAL VITAMINS W/ FOLIC ACID TABLET (FP) PO SCH (10:19)
[2020-10-27] MEDS: amLODIPine BESYLATE 5 MG TABLET (FP) PO SCH (10:19)
[2020-10-27] MEDS: BUPRENORPHINE/NALOXONE 8 MG/2 MG FILM PACKET SL SCH ×2 (10:20→21:35)
[2020-10-27] MEDS: NICOTINE 14 MG/24 HOURS TOPICAL PATCH TD SCH (10:21)
[2020-10-27] MEDS: ALBUTEROL SO4 HFA INHALER IH SCH ×4 (10:21→21:36)
[2020-10-27] MEDS: THIAMINE HCL 100 MG TABLET (FP) PO SCH (21:36)
[2020-10-27] MEDS: MELATONIN 5 MG TABLETS PO SCH (21:36)
[2020-10-27] MEDS: DOXAZOSIN MESYLATE 2 MG TABLET PO SCH (21:36)
[2020-10-27] MEDS: SUVOREXANT 15 MG TABLET PO PRN (21:36)
[2020-10-28] MEDS: NICOTINE 21 MG/24 HOURS TOPICAL PATCH TD SCH (10:11)
[2020-10-28] MEDS: amLODIPine BESYLATE 5 MG TABLET (FP) PO SCH (10:11)
[2020-10-28] MEDS: PRENATAL VITAMINS W/ FOLIC ACID TABLET (FP) PO SCH (10:11)
[2020-10-28] MEDS: risperiDONE 1 MG TABLET PO SCH ×2 (10:11→21:22)
[2020-10-28] MEDS: BUPRENORPHINE/NALOXONE 8 MG/2 MG FILM PACKET SL SCH ×2 (10:11→21:22)
[2020-10-28] MEDS: ALBUTEROL SO4 HFA INHALER IH SCH ×4 (10:12→21:23)
[2020-10-28] MEDS: hydrOXYzine PAMOATE 25 MG CAPSULE (FP) PO PRN (16:43)
[2020-10-28] MEDS: IBUPROFEN 400 MG TABLET (FP) PO PRN (16:43)
[2020-10-28] MEDS: THIAMINE HCL 100 MG TABLET (FP) PO SCH (21:21)
[2020-10-28] MEDS: MELATONIN 5 MG TABLETS PO SCH (21:21)
[2020-10-28] MEDS: DOXAZOSIN MESYLATE 2 MG TABLET PO SCH (21:22)
[2020-10-28] MEDS: SUVOREXANT 10 MG TABLET PO PRN (21:22)
[2020-10-29] MEDS: risperiDONE 1 MG TABLET PO SCH ×2 (10:24→21:30)
[2020-10-29] MEDS: BUPRENORPHINE/NALOXONE 8 MG/2 MG FILM PACKET SL SCH ×2 (10:24→22:10)
[2020-10-29] MEDS: PRENATAL VITAMINS W/ FOLIC ACID TABLET (FP) PO SCH (10:24)
[2020-10-29] MEDS: amLODIPine BESYLATE 5 MG TABLET (FP) PO SCH (10:25)
[2020-10-29] MEDS: hydrOXYzine PAMOATE 25 MG CAPSULE (FP) PO PRN (10:25)
[2020-10-29] MEDS: NICOTINE 21 MG/24 HOURS TOPICAL PATCH TD SCH (10:25)
[2020-10-29] MEDS: ALBUTEROL SO4 HFA INHALER IH SCH ×4 (10:25→21:30)
[2020-10-29] MEDS: IBUPROFEN 400 MG TABLET (FP) PO PRN (10:26)
[2020-10-29] MEDS: MELATONIN 5 MG TABLETS PO SCH (21:30)
[2020-10-29] MEDS: THIAMINE HCL 100 MG TABLET (FP) PO SCH (21:30)
[2020-10-29] MEDS: SUVOREXANT 10 MG TABLET PO PRN (21:30)
[2020-10-29] MEDS: DOXAZOSIN MESYLATE 2 MG TABLET PO SCH (21:31)
[2020-10-30] MEDS: amLODIPine BESYLATE 5 MG TABLET (FP) PO SCH (10:20)
[2020-10-30] MEDS: risperiDONE 1 MG TABLET PO SCH ×2 (10:20→21:24)
[2020-10-30] MEDS: PRENATAL VITAMINS W/ FOLIC ACID TABLET (FP) PO SCH (10:20)
[2020-10-30] MEDS: BUPRENORPHINE/NALOXONE 8 MG/2 MG FILM PACKET SL SCH ×2 (10:20→21:24)
[2020-10-30] MEDS: NICOTINE 21 MG/24 HOURS TOPICAL PATCH TD SCH (10:20)
[2020-10-30] MEDS: ALBUTEROL SO4 HFA INHALER IH SCH ×4 (10:23→21:25)
[2020-10-30] MEDS: SUVOREXANT 10 MG TABLET PO PRN (21:24)
[2020-10-30] MEDS: MELATONIN 5 MG TABLETS PO SCH (21:24)
[2020-10-30] MEDS: THIAMINE HCL 100 MG TABLET (FP) PO SCH (21:24)
[2020-10-30] MEDS: DOXAZOSIN MESYLATE 2 MG TABLET PO SCH (21:25)
[2020-10-31] MEDS: hydrOXYzine PAMOATE 25 MG CAPSULE (FP) PO PRN (10:07)
[2020-10-31] MEDS: IBUPROFEN 400 MG TABLET (FP) PO PRN (10:07)
[2020-10-31] MEDS: amLODIPine BESYLATE 5 MG TABLET (FP) PO SCH (10:07)
[2020-10-31] MEDS: BUPRENORPHINE/NALOXONE 8 MG/2 MG FILM PACKET SL SCH ×2 (10:07→21:45)
[2020-10-31] MEDS: risperiDONE 1 MG TABLET PO SCH ×2 (10:07→21:41)
[2020-10-31] MEDS: PRENATAL VITAMINS W/ FOLIC ACID TABLET (FP) PO SCH (10:07)
[2020-10-31] MEDS: NICOTINE 21 MG/24 HOURS TOPICAL PATCH TD SCH (10:08)
[2020-10-31] MEDS: ALBUTEROL SO4 HFA INHALER IH SCH ×4 (10:08→21:45)
[2020-10-31] MEDS: MELATONIN 5 MG TABLETS PO SCH (21:40)
[2020-10-31] MEDS: THIAMINE HCL 100 MG TABLET (FP) PO SCH (21:40)
[2020-10-31] MEDS: SUVOREXANT 10 MG TABLET PO PRN (21:41)
[2020-10-31] MEDS: DOXAZOSIN MESYLATE 2 MG TABLET PO SCH (21:42)
[2020-11-01] MEDS: amLODIPine BESYLATE 5 MG TABLET (FP) PO SCH (10:01)
[2020-11-01] MEDS: BUPRENORPHINE/NALOXONE 8 MG/2 MG FILM PACKET SL SCH ×2 (10:01→21:26)
[2020-11-01] MEDS: NICOTINE 21 MG/24 HOURS TOPICAL PATCH TD SCH (10:01)
[2020-11-01] MEDS: hydrOXYzine PAMOATE 25 MG CAPSULE (FP) PO PRN (10:01)
[2020-11-01] MEDS: PRENATAL VITAMINS W/ FOLIC ACID TABLET (FP) PO SCH (10:01)
[2020-11-01] MEDS: risperiDONE 1 MG TABLET PO SCH ×2 (10:01→21:26)
[2020-11-01] MEDS: ALBUTEROL SO4 HFA INHALER IH SCH ×4 (10:02→21:27)
[2020-11-01] MEDS: THIAMINE HCL 100 MG TABLET (FP) PO SCH (21:26)
[2020-11-01] MEDS: DOXAZOSIN MESYLATE 2 MG TABLET PO SCH (21:26)
[2020-11-01] MEDS: MELATONIN 5 MG TABLETS PO SCH (21:26)
[2020-11-01] MEDS: SUVOREXANT 10 MG TABLET PO PRN (21:27)
[2020-11-02] MEDS: NICOTINE 21 MG/24 HOURS TOPICAL PATCH TD SCH (10:03)
[2020-11-02] MEDS: hydrOXYzine PAMOATE 25 MG CAPSULE (FP) PO PRN (10:03)
[2020-11-02] MEDS: BUPRENORPHINE/NALOXONE 8 MG/2 MG FILM PACKET SL SCH ×4 (10:03→21:30)
[2020-11-02] MEDS: risperiDONE 1 MG TABLET PO SCH ×2 (10:03→21:31)
[2020-11-02] MEDS: amLODIPine BESYLATE 5 MG TABLET (FP) PO SCH (10:03)
[2020-11-02] MEDS: PRENATAL VITAMINS W/ FOLIC ACID TABLET (FP) PO SCH (10:03)
[2020-11-02] MEDS: ALBUTEROL SO4 HFA INHALER IH SCH ×3 (10:06→15:37)
[2020-11-02] MEDS: SUVOREXANT 10 MG TABLET PO PRN (21:30)
[2020-11-02] MEDS: THIAMINE HCL 100 MG TABLET (FP) PO SCH (21:31)
[2020-11-02] MEDS: MELATONIN 5 MG TABLETS PO SCH (21:31)
[2020-11-02] MEDS: DOXAZOSIN MESYLATE 2 MG TABLET PO SCH (21:31)
[2020-11-03] MEDS: BUPRENORPHINE/NALOXONE 8 MG/2 MG FILM PACKET SL SCH ×2 (09:57→22:37)
[2020-11-03] MEDS: risperiDONE 1 MG TABLET PO SCH ×2 (09:57→21:13)
[2020-11-03] MEDS: amLODIPine BESYLATE 5 MG TABLET (FP) PO SCH (09:57)
[2020-11-03] MEDS: PRENATAL VITAMINS W/ FOLIC ACID TABLET (FP) PO SCH (09:57)
[2020-11-03] MEDS: NICOTINE 21 MG/24 HOURS TOPICAL PATCH TD SCH (09:57)
[2020-11-03] MEDS: ALBUTEROL SO4 HFA INHALER IH PRN (09:59)
[2020-11-03] MEDS: MELATONIN 5 MG TABLETS PO SCH (21:13)
[2020-11-03] MEDS: DOXAZOSIN MESYLATE 2 MG TABLET PO SCH (21:13)
[2020-11-03] MEDS: THIAMINE HCL 100 MG TABLET (FP) PO SCH (21:13)
[2020-11-03] MEDS: SUVOREXANT 15 MG TABLET PO PRN (21:13)
[2020-11-03] MEDS ORDERED: SUVOREXANT 10 MG TABLET PO PRN (22:00)
[2020-11-04] MEDS: NICOTINE 21 MG/24 HOURS TOPICAL PATCH TD SCH (10:17)
[2020-11-04] MEDS: PRENATAL VITAMINS W/ FOLIC ACID TABLET (FP) PO SCH (10:17)
[2020-11-04] MEDS: amLODIPine BESYLATE 5 MG TABLET (FP) PO SCH (10:17)
[2020-11-04] MEDS: BUPRENORPHINE/NALOXONE 8 MG/2 MG FILM PACKET SL SCH ×2 (10:17→21:42)
[2020-11-04] MEDS: risperiDONE 1 MG TABLET PO SCH ×2 (10:17→21:40)
[2020-11-04] MEDS: ALBUTEROL SO4 HFA INHALER IH PRN (10:19)
[2020-11-04] MEDS ORDERED: COVID-19 VAC,AD26(JANSSEN)/PF 0.5 ML IM ONE (12:00)
[2020-11-04] MEDS: ACETAMINOPHEN 325 MG TABLET (FP) PO PRN (16:02)
[2020-11-04] MEDS: MELATONIN 5 MG TABLETS PO SCH (21:40)
[2020-11-04] MEDS: DOXAZOSIN MESYLATE 2 MG TABLET PO SCH (21:40)
[2020-11-04] MEDS: THIAMINE HCL 100 MG TABLET (FP) PO SCH (21:41)
[2020-11-04] MEDS: SUVOREXANT 15 MG TABLET PO PRN (21:41)
[2020-11-05] MEDS: hydrOXYzine PAMOATE 25 MG CAPSULE (FP) PO PRN (06:16)
[2020-11-05] MEDS: ALBUTEROL SO4 HFA INHALER IH PRN (06:16)
[2020-11-05] MEDS: ACETAMINOPHEN 325 MG TABLET (FP) PO PRN ×2 (06:16→14:52)
[2020-11-05] MEDS: NICOTINE 21 MG/24 HOURS TOPICAL PATCH TD SCH (10:15)
[2020-11-05] MEDS: PRENATAL VITAMINS W/ FOLIC ACID TABLET (FP) PO SCH (10:15)
[2020-11-05] MEDS: risperiDONE 1 MG TABLET PO SCH ×2 (10:15→21:28)
[2020-11-05] MEDS: BUPRENORPHINE/NALOXONE 8 MG/2 MG FILM PACKET SL SCH ×2 (10:16→21:30)
[2020-11-05] MEDS: amLODIPine BESYLATE 5 MG TABLET (FP) PO SCH (10:16)
[2020-11-05] MEDS: METHOCARBAMOL 500 MG TABLET PO PRN ×2 (15:57→21:29)
[2020-11-05] MEDS: SUVOREXANT 15 MG TABLET PO PRN (21:28)
[2020-11-05] MEDS: DOXAZOSIN MESYLATE 2 MG TABLET PO SCH (21:29)
[2020-11-05] MEDS: MELATONIN 5 MG TABLETS PO SCH (21:29)
[2020-11-05] MEDS: THIAMINE HCL 100 MG TABLET (FP) PO SCH (21:30)
[2020-11-06] MEDS ORDERED: SUVOREXANT 15 MG TABLET PO PRN (07:44)
[2020-11-06 09:19] VITALS: TEMP 97.1
[2020-11-06] MEDS: PRENATAL VITAMINS W/ FOLIC ACID TABLET (FP) PO SCH (10:07)
[2020-11-06] MEDS: ALBUTEROL SO4 HFA INHALER IH PRN (10:08)
[2020-11-06] MEDS: BUPRENORPHINE/NALOXONE 8 MG/2 MG FILM PACKET SL SCH ×2 (10:08→22:55)
[2020-11-06] MEDS: NICOTINE 21 MG/24 HOURS TOPICAL PATCH TD SCH (10:08)
[2020-11-06] MEDS: risperiDONE 1 MG TABLET PO SCH ×2 (10:08→21:27)
[2020-11-06] MEDS: amLODIPine BESYLATE 5 MG TABLET (FP) PO SCH (10:08)
[2020-11-06] MEDS: METHOCARBAMOL 500 MG TABLET PO PRN ×2 (10:09→21:26)
[2020-11-06] MEDS: hydrOXYzine PAMOATE 25 MG CAPSULE (FP) PO PRN (10:09)
[2020-11-06 21:06] LABS: EPI CELLS 2 /uL (0-25.1); HYALINE CASTS 0 /uL (0-3.1); PH,URINE 6.5 (5.0-8.0); URINE APPEARANCE CLEAR; URINE BACTERIA 3 /uL (0-1359); URINE BILIRUBIN NEGATIVE (NEGATIVE); URINE COLOR YELLOW; URINE GLUCOSE (UA) NEGATIVE (NEGATIVE); URINE KETONE NEGATIVE (NEGATIVE); URINE LEUK ESTERASE NEGATIVE (NEGATIVE); URINE NITRITE NEGATIVE (NEGATIVE); URINE PROTEIN NEGATIVE (NEGATIVE); URINE RBC 183 /uL (0-23.9); URINE UROBILINOGEN 0.2 mg/dL (0.2-1.0); URINE WBC 8 /uL (0-25.8)
[2020-11-06] MEDS: THIAMINE HCL 100 MG TABLET (FP) PO SCH (21:26)
[2020-11-06] MEDS: MELATONIN 5 MG TABLETS PO SCH (21:26)
[2020-11-06] MEDS: DOXAZOSIN MESYLATE 2 MG TABLET PO SCH (21:27)
[2020-11-07] MEDS: BUPRENORPHINE/NALOXONE 8 MG/2 MG FILM PACKET SL SCH ×2 (09:50→22:45)
[2020-11-07] MEDS: risperiDONE 1 MG TABLET PO SCH ×2 (09:50→21:26)
[2020-11-07] MEDS: PRENATAL VITAMINS W/ FOLIC ACID TABLET (FP) PO SCH (09:50)
[2020-11-07] MEDS: NICOTINE 21 MG/24 HOURS TOPICAL PATCH TD SCH (09:50)
[2020-11-07] MEDS: amLODIPine BESYLATE 5 MG TABLET (FP) PO SCH (09:50)
[2020-11-07] MEDS: METHOCARBAMOL 500 MG TABLET PO PRN ×3 (09:52→21:27)
[2020-11-07] MEDS: MELATONIN 5 MG TABLETS PO SCH (21:26)
[2020-11-07] MEDS: THIAMINE HCL 100 MG TABLET (FP) PO SCH (21:26)
[2020-11-07] MEDS: DOXAZOSIN MESYLATE 2 MG TABLET PO SCH (21:26)
[2020-11-07] MEDS: SUVOREXANT 15 MG TABLET PO PRN (21:27)
[2020-11-08] MEDS: BUPRENORPHINE/NALOXONE 8 MG/2 MG FILM PACKET SL SCH ×2 (09:56→22:01)
[2020-11-08] MEDS: PRENATAL VITAMINS W/ FOLIC ACID TABLET (FP) PO SCH (09:56)
[2020-11-08] MEDS: NICOTINE 21 MG/24 HOURS TOPICAL PATCH TD SCH (09:56)
[2020-11-08] MEDS: risperiDONE 1 MG TABLET PO SCH ×2 (09:56→21:22)
[2020-11-08] MEDS: amLODIPine BESYLATE 5 MG TABLET (FP) PO SCH (09:56)
[2020-11-08] MEDS: ACETAMINOPHEN 325 MG TABLET (FP) PO PRN (15:34)
[2020-11-08] MEDS: METHOCARBAMOL 500 MG TABLET PO PRN ×2 (15:35→21:24)
[2020-11-08] MEDS: DOXAZOSIN MESYLATE 2 MG TABLET PO SCH (21:22)
[2020-11-08] MEDS: MELATONIN 5 MG TABLETS PO SCH (21:22)
[2020-11-08] MEDS: THIAMINE HCL 100 MG TABLET (FP) PO SCH (21:22)
[2020-11-08] MEDS: SUVOREXANT 15 MG TABLET PO PRN (21:23)
[2020-11-08] MEDS: IBUPROFEN 400 MG TABLET (FP) PO PRN (21:24)
[2020-11-09] MEDS: PRENATAL VITAMINS W/ FOLIC ACID TABLET (FP) PO SCH (10:01)
[2020-11-09] MEDS: BUPRENORPHINE/NALOXONE 8 MG/2 MG FILM PACKET SL SCH ×2 (10:01→21:19)
[2020-11-09] MEDS: NICOTINE 21 MG/24 HOURS TOPICAL PATCH TD SCH (10:02)
[2020-11-09] MEDS: amLODIPine BESYLATE 5 MG TABLET (FP) PO SCH (10:02)
[2020-11-09] MEDS: ALBUTEROL SO4 HFA INHALER IH PRN (10:05)
[2020-11-09] MEDS: risperiDONE 1 MG TABLET PO SCH ×2 (10:46→21:20)
[2020-11-09] MEDS: METHOCARBAMOL 500 MG TABLET PO PRN (19:09)
[2020-11-09] MEDS: SUVOREXANT 15 MG TABLET PO PRN (21:19)
[2020-11-09] MEDS: MELATONIN 5 MG TABLETS PO SCH (21:20)
[2020-11-09] MEDS: THIAMINE HCL 100 MG TABLET (FP) PO SCH (21:20)
[2020-11-09] MEDS: DOXAZOSIN MESYLATE 2 MG TABLET PO SCH (21:21)
[2020-11-10] MEDS: BUPRENORPHINE/NALOXONE 8 MG/2 MG FILM PACKET SL SCH ×2 (09:38→22:38)
[2020-11-10] MEDS: ALBUTEROL SO4 HFA INHALER IH PRN (09:38)
[2020-11-10] MEDS: risperiDONE 1 MG TABLET PO SCH ×2 (09:39→21:21)
[2020-11-10] MEDS: PRENATAL VITAMINS W/ FOLIC ACID TABLET (FP) PO SCH (09:39)
[2020-11-10] MEDS: amLODIPine BESYLATE 5 MG TABLET (FP) PO SCH (09:39)
[2020-11-10] MEDS: NICOTINE 21 MG/24 HOURS TOPICAL PATCH TD SCH (09:39)
[2020-11-10] MEDS: MELATONIN 5 MG TABLETS PO SCH (21:21)
[2020-11-10] MEDS: THIAMINE HCL 100 MG TABLET (FP) PO SCH (21:21)
[2020-11-10] MEDS: SUVOREXANT 15 MG TABLET PO PRN (21:22)
[2020-11-10] MEDS: METHOCARBAMOL 500 MG TABLET PO PRN (21:22)
[2020-11-10] MEDS ORDERED: PT OWN MED DRAWER 7, Y5N ONE (21:23)
[2020-11-10] MEDS: DOXAZOSIN MESYLATE 2 MG TABLET PO SCH (22:55)
[2020-11-11] MEDS: BUPRENORPHINE/NALOXONE 8 MG/2 MG FILM PACKET SL SCH (09:49)
[2020-11-11] MEDS: NICOTINE 21 MG/24 HOURS TOPICAL PATCH TD SCH (09:49)
[2020-11-11] MEDS: amLODIPine BESYLATE 5 MG TABLET (FP) PO SCH (09:49)
[2020-11-11] MEDS: risperiDONE 1 MG TABLET PO SCH (09:49)
[2020-11-11] MEDS: METHOCARBAMOL 500 MG TABLET PO PRN (09:49)
[2020-11-11] MEDS: PRENATAL VITAMINS W/ FOLIC ACID TABLET (FP) PO SCH (09:49)
[2020-11-11] MEDS: ALBUTEROL SO4 HFA INHALER IH PRN (09:53)
[2020-11-11 11:34] VITALS: BP 147/86; PULSE 66
[2020-11-11] MEDS: IBUPROFEN 400 MG TABLET (FP) PO PRN (12:02)
== END 2020-11-11 12:40 | disposition home or self-care (01) | DRG 895 ==
LOC: YASAS 14:00 → Y3W 16:35 → Y5N 10-17 11:52 → Y3W 10-17 11:53
PROVIDERS: ADMIT Allergy & Immunology; ATTEND Allergy & Immunology
PROC: HZ42ZZZ Group Counseling for Substance Abuse Treatment, Cognitive-Behavioral (ICD-10-PCS; principal; 2020-10-13)
DX: F11.20 Opioid dependence, uncomplicated (principal); F14.20 Cocaine dependence, uncomplicated; F19.280 Other psychoactive substance dependence with psychoactive substance-induced anxiety disorder; F19.282 Other psychoactive substance dependence with psychoactive substance-induced sleep disorder; R45.851 Suicidal ideations; F10.20 Alcohol dependence, uncomplicated; F17.210 Nicotine dependence, cigarettes, uncomplicated; F19.24 Other psychoactive substance dependence with psychoactive substance-induced mood disorder; F31.9 Bipolar disorder, unspecified; F25.9 Schizoaffective disorder, unspecified; I10 Essential (primary) hypertension; M54.5 Low back pain; G89.29 Other chronic pain; N40.0 Benign prostatic hyperplasia without lower urinary tract symptoms; R31.9 Hematuria, unspecified; E88.09 Other disorders of plasma-protein metabolism, not elsewhere classified; R60.0 Localized edema; R30.0 Dysuria; R35.0 Frequency of micturition; Z62.810 Personal history of physical and sexual abuse in childhood; Z59.0 Homelessness
CPT/HCPCS: 0031A; 36415; 80053; 81003; 85027; 86780; 87086; 91303; C9803; J2794; U0003; U0005